=== PATIENT | female | born 1970 | race Caucasian/White ===

== ENCOUNTER → 2019-10-13 | Outpatient (CLI) | payer MEDICARE | END | disposition home or self-care (01) | LOC: PREOP 05:56 | PROVIDERS: ATTEND Surgery | DX: Z01.818 Encounter for other preprocedural examination (principal) ==

== ENCOUNTER → 2019-10-13 | Outpatient (CLI) | payer MEDICAID, MEDICARE ==
--- NOTE | 2019-10-13 14:38 | Diagnostic Imaging Report ---
INDICATION: Bilateral breast pain. Patient reports having prior breast reduction surgery. COMPARISON: No prior studies are available for comparison. TECHNIQUE: Bilateral 2D and 3D diagnostic mammography was performed. This includes routine CC and MLO views as well as 90 degree lateral views, left exaggerated CC view, and a right spot compression ML view. The current study was evaluated with a Computer Aided Detection (CAD) system. FINDINGS: Both breasts are heterogeneously dense, limiting the sensitivity of mammography. There are scattered benign calcifications in both breasts. There is a density in the superior right breast at mid depth which is indeterminate. Additional views of this area show some persistent density and ultrasound of this area is recommended. No suspicious microcalcifications are seen. A pacemaker battery pack in the left axilla is noted. IMPRESSION: Slightly irregular density in the superior right breast approximately 4 cm from the nipple. This is not well-visualized on the CC view. Further evaluation with ultrasound is recommended. Ultrasound of the areas of breast pain bilaterally is also recommended and will be performed today. ACR BI-RADS Category 0: Incomplete. (Needs additional imaging evaluation). Result letter will be mailed to the patient. Note: At least 10% of breast cancer is not imaged by mammography. Dictated by: Dictated on workstation # [id number]
--- NOTE | 2019-10-13 14:52 | Diagnostic Imaging Report ---
INDICATION: Bilateral breast reduction and bilateral breast pain. Patient also has a right breast density noted on diagnostic mammogram. COMPARISON: Correlation is made with diagnostic mammogram earlier the same day. FINDINGS: Sonographic interrogation of the left breast at areas of pain was performed. No sonographic abnormality is identified. There is an area of hypoechogenicity in the region of the scar of the right breast, 5 o'clock location. This area measures 2.4 x 0.7 x 1.1 cm. This could represent an old hematoma. In addition, there appears to be a small cluster of cysts at the 1 o'clock location in the right breast, 5 cm from the nipple. This in aggregate measures 7 mm x 5 mm x 4 mm. This may account for the density noted mammographically. No other sonographic abnormality is seen. IMPRESSION: 1. No sonographic abnormality in the left breast is identified. 2. Probable cyst cluster at the 1 o'clock location, 5 cm from the nipple. There is also questionable old hematoma at the 5 o'clock location of the right breast just deep to the scar. Follow-up ultrasound of these areas as well as a follow-up right mammogram in six months would be recommended to confirm stability. ACR BI-RADS Category 3: Probably benign findings. Dictated by: Dictated on workstation # [id number]
== END ==
LOC: RAD 12:06
PROVIDERS: ATTEND Registered Nurse
DX: N64.4 Mastodynia (principal); R92.2 Inconclusive mammogram
CPT/HCPCS: 76642; 77066

== ENCOUNTER 2020-01-12 16:01 | Outpatient (RCR) | payer MEDICAID ==
[~2020-01-12 16:01] MED LIST: CETI10TA17 PO; CITA10TA7 PO; DICY10CA12 PO; EPIN5DRO10 OP; EST30C VG; FEXO-46 PO; IBUP-1780 PO; IPRA3AMP31 IH; IPRA4AER IH; LAMO100T5 PO; MONT10TA26 PO; OLOP2.5D6 OP; OMEP20CA18 PO; PROM25TA14 PO; QUET200T29 PO; QUET25TA73 PO; RT-ALBUINH IH; TOPI200T8 PO
== END 2020-04-05 | disposition home or self-care (01) ==
LOC: LAB 16:01
PROVIDERS: ATTEND Surgery
DX: Z01.89 Encounter for other specified special examinations (principal); B96.81 Helicobacter pylori [H. pylori] as the cause of diseases classified elsewhere
CPT/HCPCS: 36415; 87338

== ENCOUNTER 2023-05-12 05:13 | Emergency (ER) | payer MEDICARE, MEDICAID ==
[~2023-05-12 05:13] MED LIST changes: +ALBU8.5H6 IH; -CITA10TA7 PO; +CITA10TA9 PO; +DICY-11 PO; -DICY10CA12 PO; -FEXO-46 PO; +LEVE500T6 PO; +MONT-40 PO; -MONT10TA26 PO; +NF-ALLE180 PO; +OLOP2.5D16 OP; -OLOP2.5D6 OP; +QUET25TA35 PO; -QUET25TA73 PO; -RT-ALBUINH IH
[2023-05-12] MEDS ORDERED: DroPERidol INJECTION 5 MG/2 ML (ED ONLY!) IV ONE (06:30)
--- NOTE | 2023-05-12 06:37 | ED General ---
General Chief Complaint: Altered Mental Status Stated Complaint: HALLUCINATIONS Nursing Triage Note: TO ED VIA [facility] TO ROOM 7 WITH C/O ABD PAIN AND YELLING AND CRYING. PT RAMBLED SPEECH. PT COMES FROM [facility]. Source of Information: Patient Exam Limitations: No Limitations History of Present Illness Date Seen by Provider: May 12, 2023 Time Seen by Provider: 05:15 Initial Comments 52-year-old female with past medical history of developmental delay and prior drug use coming in via EMS from her snf due to initially abdominal pain, yelling, and crying. The patient states that when she used to do meth, it stayed in her stomach, now has grown, and she is concerned that it will explode. Unclear when this started, patient does not associate any symptoms with it. Otherwise denying any other acute complaints. She is having regular bowel movements, no nausea or vomiting, no fever, no dysuria, no diarrhea. Allergies and Home Medications Allergies Coded Allergies: carbamazepine (Verified Allergy, Severe, WEAKNESS, 10/14/19) divalproex sodium (Verified Allergy, Severe, WEAKNESS, 10/14/19) phenytoin (Verified Allergy, Severe, WEAKNESS, 10/14/19) diphenhydramine (Verified Allergy, Mild, HIVES, 10/14/19) pseudoephedrine (Verified Allergy, Mild, WEAKNESS, 10/14/19) Patient Home Medication List Home Medication List Reviewed: Yes Albuterol Sulfate (Ventolin Hfa) 1 Puff Puff, 2 PUFF IH Q4H PRN for SHORTNESS OF BREATH, (Reported) Entered as Reported by: RODRICK ORO on 11/25/19 1333 Albuterol/Ipratropium (Combivent Respimat Inhal [place]) 4 Gm Aero, 2 PUFF IH Q4H PRN for SHORTNESS OF BREATH, (Reported) Entered as Reported by: RODRICK ORO on 11/25/19 1333 Cetirizine HCl (Cetirizine HCl) 10 Mg Tablet, 10 MG PO DAILY, (Reported) Entered as Reported by: RODRICK ORO on 11/25/19 1333 Citalopram Hydrobromide (Citalopram HBr) 10 Mg Tablet, 10 MG PO DAILY, (Reported) Entered as Reported by: RODRICK ORO on 11/25/19 133 Dicyclomine HCl (Dicyclomine HCl) 10 Mg Capsule, 10 MG PO QID PRN for PAIN- MODERATE (5-7), (Reported) Entered as Reported by: RODRICK ORO on 11/25/19 133 Epinastine HCl (Epinastine HCl) 5 Ml Drops, 5 ML OP BID, (Reported) Entered as Reported by: RODRICK ORO on 11/25/19 133 Estrogens Conjugated (Premarin) 30 Gm Cr, 30 GM VG 2X PER WEEK, (Reported) Entered as Reported by: RODRICK ORO on 11/25/19 133 Fexofenadine HCl (Fexofenadine HCl) 180 Mg Tablet, 180 MG PO DAILY, (Reported) Entered as Reported by: RODRICK ORO on 11/25/19 133 Ibuprofen (Ibuprofen) 800 Mg Tablet, 800 MG PO Q8H PRN for PAIN-MILD, (Reported) Entered as Reported by: RODRICK ORO on 11/25/19 133 Ipratropium/Albuterol Sulfate (Iprat-Albut 0.5-3(2.5) mg/3 ml) 3 Ml Ampul.neb, 3 ML IH Q12H PRN for SHORTNESS OF BREATH, (Reported) Entered as Reported by: RODRICK ORO on 11/25/191332 Lamotrigine (Lamotrigine) 100 Mg Tablet, 50 MG PO BID, (Reported) Entered as Reported by: RODRICK ORO on 11/25/19 133 Levetiracetam (Levetiracetam) 500 Mg Tablet, 500 MG PO BID WITH MEALS, (Reported) Entered as Reported by: Nohemi Magaña on 04/27/232209 Montelukast Sodium (Montelukast Sodium) 10 Mg Tablet, 10 MG PO DAILY, (Reported) Entered as Reported by: RODRICK ORO on 11/25/19 133 Olopatadine HCl (Olopatadine HCl) 2.5 Ml Drops, 2.5 ML OP BID, (Reported) Entered as Reported by: RODRICK ORO on 4/28/20 1333 Omeprazole (Omeprazole) 20 Mg Capsule.dr, 20 MG PO BID, (Reported) Entered as Reported by: RODRICK ORO on 11/25/19 133 Promethazine HCl (Promethazine Tablet) 25 Mg Tablet, 25 MG PO Q6H PRN for NAUSEA/VOMITING, (Reported) Entered as Reported by: RODRICK ORO on 11/25/191332 Quetiapine Fumarate (Quetiapine Fumarate) 25 Mg Tablet, 25 MG PO TID, (Reported) Entered as Reported by: RODRICK ORO on 11/25/19 133 Quetiapine Fumarate (Quetiapine Fumarate) 25 Mg Tablet, 25 MG PO HS, (Reported) Entered as Reported by: RODRICK ORO on 11/25/191332 Quetiapine Fumarate (Quetiapine Fumarate) 200 Mg Tablet, 200 MG PO EVENING, (Reported) Entered as Reported by: RODRICK ORO on 11/25/19 133 Topiramate (Topiramate) 200 Mg Tablet, 200 MG PO BID, (Reported) Entered as Reported by: RODRICK ORO on 11/25/19 133 Review of Systems Review of Systems Constitutional: No fever EENTM: no symptoms reported Respiratory: no symptoms reported Cardiovascular: no symptoms reported Gastrointestinal: see HPI Genitourinary: no symptoms reported Musculoskeletal: no symptoms reported Skin: no symptoms reported Past [id number]-Ntkrrg Hx Patient Social History Additional substance use comme: PAST HX OF METH USE Seasonal Allergies Seasonal Allergies: No Past Medical History Surgeries: Yes (BRAIN FOR SEIZURES, BREAST REDUCTION) Hysterectomy, Tubal Ligation Respiratory: Yes (O2 2L NOC ) Asthma Cardiac: No Neurological: Yes (NO SEIZURES SINCE SURGERY 2018) 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 Disorder, Seizure Disorder 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 oz. kg; 23.29 BMI Method: General Appearance: No Apparent Distress, WD/WN Eyes: Bilateral Eye Normal Inspection HEENT: PERRL/EOMI, Normal ENT Inspection, Pharynx Normal Neck: Full Range of Motion, Normal Inspection, Non Tender, Supple Respiratory: Chest Non Tender, Lungs Clear, Normal Breath Sounds, No Accessory Muscle Use, No Respiratory Distress Cardiovascular: Regular Rate, Rhythm, No Edema, Normal Peripheral Pulses Gastrointestinal: Normal Bowel Sounds, Non Tender, Soft; No Distended, No Guarding Back: Normal Inspection, No CVA Tenderness Extremity: Normal Capillary Refill, Normal Inspection, Normal Range of Motion, Non Tender, No Calf Tenderness, No Pedal Edema Neurologic/Psychiatric: Alert, No Motor/Sensory Deficits, Normal Mood/Affect Skin: Normal Color, Warm/Dry Progress/Results/Core Measures Suspected Sepsis SIRS Temperature: Pulse: 69 Respiratory Rate: 16 Laboratory Tests 05/12/23 06:44: White Blood Count 7.2 Blood Pressure 99 /81 Mean: 87 Laboratory Tests 05/12/23 06:44: Creatinine 0.82, Platelet Count 276, Total Bilirubin 0.6 Results/Orders Lab Results Laboratory Tests Test 05/12/23 06:25 05/12/23 06:44 Range/Units Urine Color YELLOW Urine Clarity CLEAR Urine pH 5.5 5-9 Urine Specific [place] 1.020 1.016-1.022 Urine Protein NEGATIVE NEGATIVE Urine Glucose (UA) NEGATIVE NEGATIVE Urine Ketones NEGATIVE NEGATIVE Urine Nitrite NEGATIVE NEGATIVE Urine Bilirubin NEGATIVE NEGATIVE Urine Urobilinogen 0.2 < = 1.0 MG/DL Urine Leukocyte Esterase TRACE H NEGATIVE Urine RBC (Auto) NEGATIVE NEGATIVE Urine RBC NONE /HPF Urine WBC NONE /HPF Urine Squamous Epithelial Cells 2-5 /HPF Urine Crystals NONE /LPF Urine Bacteria TRACE /HPF Urine Casts NONE /LPF Urine Mucus NEGATIVE /LPF Urine Culture Indicated NO Urine Opiates Screen NEGATIVE NEGATIVE Urine Oxycodone Screen NEGATIVE NEGATIVE Urine Methadone Screen NEGATIVE NEGATIVE Urine Propoxyphene Screen NEGATIVE NEGATIVE Urine Barbiturates Screen NEGATIVE NEGATIVE Ur Tricyclic Antidepressants Screen NEGATIVE NEGATIVE Urine Phencyclidine Screen NEGATIVE NEGATIVE Urine Amphetamines Screen POSITIVE H NEGATIVE Urine Methamphetamines Screen POSITIVE H NEGATIVE Urine Benzodiazepines Screen NEGATIVE NEGATIVE Urine Cocaine Screen NEGATIVE NEGATIVE Urine Cannabinoids Screen NEGATIVE NEGATIVE White Blood Count 7.2 4.3-11.0 10^3/uL Red Blood Count 4.52 3.80-5.11 10^6/uL Hemoglobin 12.8 11.5-16.0 g/dL Hematocrit 40 35-52 % Mean Corpuscular Volume 87 80-99 fL Mean Corpuscular Hemoglobin 28 25-34 pg Mean Corpuscular Hemoglobin Concent 32 32-36 g/dL Red Cell Distribution Width 15.3 H 10.0-14.5 % Platelet Count 276 130-400 10^3/uL Mean Platelet Volume 10.0 9.0-12.2 fL Immature Granulocyte % (Auto) 0 % Neutrophils (%) (Auto) 42 42-75 % Lymphocytes (%) (Auto) 46 H 12-44 % Monocytes (%) (Auto) 7 0-12 % Eosinophils (%) (Auto) 4 0-10 % Basophils (%) (Auto) 1 0-10 % Neutrophils # (Auto) 3.1 1.8-7.8 10^3/uL Lymphocytes # (Auto) 3.3 1.0-4.0 10^3/uL Monocytes # (Auto) 0.5 0.0-1.0 10^3/uL Eosinophils # (Auto) 0.3 0.0-0.3 10^3/uL Basophils # (Auto) 0.1 0.0-0.1 10^3/uL Immature Granulocyte # (Auto) 0.0 0.0-0.1 10^3/uL Sodium Level 142 135-145 MMOL/L Potassium Level 3.5 L 3.6-5.0 MMOL/L Chloride Level 114 H 98-107 MMOL/L Carbon Dioxide Level 18 L 21-32 MMOL/L Anion Gap 10 5-14 MMOL/L Blood Urea Nitrogen 12 7-18 MG/DL Creatinine 0.82 0.60-1.30 MG/DL Estimat Glomerular Filtration Rate 85 BUN/Creatinine Ratio 15 Glucose Level 87 70-105 MG/DL Calcium Level 8.8 8.5-10.1 MG/DL Corrected Calcium 8.9 8.5-10.1 MG/DL Total Bilirubin 0.6 0.1-1.0 MG/DL Aspartate Amino Transf (AST/SGOT) 27 5-34 U/L Alanine Aminotransferase (ALT/SGPT) 22 0-55 U/L Alkaline Phosphatase 104 40-136 U/L Total Protein 6.9 6.4-8.2 GM/DL Albumin 3.9 3.2-4.5 GM/DL Lipase 32 8-78 U/L Salicylates Level < 5.0 L 5.0-20.0 MG/DL Acetaminophen Level < 10 L 10-30 UG/ML Serum Alcohol < 10 <10 MG/DL My Orders Orders - ADALI PFEIFFER MD Lipase (05/12/23 06:23) Droperidol Injection (Ed Only) (Droperid (05/12/23 06:30) Droperidol Injection (Ed Only) (Droperid (05/12/23 07:15) Medications Given in ED Current Medications Medications Dose Ordered Sig/Jessenia Route Start Time Stop Time Status Last Admin Dose Admin Droperidol 1.25 mg ONCE ONCE IM 05/12/23 07:15 05/12/23 07:19 DC 05/12/23 07:26 1.25 MG Vital Signs/I&O 05/12/23 05:13 Temp 36.7 Pulse 69 Resp 16 B/P (MAP) 99/81 (87) Pulse Ox 97 O2 Delivery Room Air Capillary Refill : Less Than 3 Seconds Blood Pressure Mean: 87 Progress Note : Progress Note 52yoF with above history coming in feeling weird abdominal sensations. ABCs intact and VSS on presentation. Physical exam with soft and nontender abdomen. IV placed and basic labs obtained and were significant for normal WBC, normal creatinine, normal lipase. Urinalysis without evidence of infection. UDS positive for meth. Patient was given IM droperidol to help with symptoms with guarding meth use. I believe she is stable for discharge with outpatient follow-up. She was sent home with strict return precautions. Departure Impression Primary Impression: Methamphetamine use Disposition: 01 HOME, SELF-CARE Condition: Stable Departure-Patient Inst. Decision time for Depature: 07:40 Referrals: [facility] [place] ([place]Family) Primary Care Physician Patient Instructions: Drug Misuse and Addiction (DC) Add. Discharge Instructions: The symptoms you are having are related to the meth use. These will improve after the meth is out of your system. ADALI PFEIFFER MD May 12, 2023 06:36
[2023-05-12 06:43] LABS: BILIRUBIN,URINE NEGATIVE (NEGATIVE); CLARITY,URINE CLEAR; COLOR,URINE YELLOW; GLUCOSE, URINE (UA) NEGATIVE (NEGATIVE); KETONES,URINE NEGATIVE (NEGATIVE); LEUKOCYTE ESTERASE ,URINE TRACE (NEGATIVE); NITRITE,URINE NEGATIVE (NEGATIVE); PH,URINE 5.5 (5-9); PROTEIN,URINE NEGATIVE (NEGATIVE)
[2023-05-12 06:44] LABS: BACTERIA,URINE TRACE /HPF
[2023-05-12 06:46] LABS: AMPHETAMINE SCREEN, URINE POSITIVE (NEGATIVE); BARBITURATE SCREEN URINE NEGATIVE (NEGATIVE); CANNABINOID SCREEN, URINE NEGATIVE (NEGATIVE); COCAINE SCREEN URINE NEGATIVE (NEGATIVE); METHADONE STAT NEGATIVE (NEGATIVE); OPIATE SCREEN URINE NEGATIVE (NEGATIVE); OXYCODONE STAT NEGATIVE (NEGATIVE); PROPOXYPHENE STAT NEGATIVE (NEGATIVE); TRICYCLIC ANTIDEPRESSANTS SCRE NEGATIVE (NEGATIVE)
[2023-05-12 06:59] LABS: BASOPHILS # (AUTO) 0.1 10^3/uL (0.0-0.1); BASOPHILS % (AUTO) 1 % (0-10); EOSINOPHILS # (AUTO) 0.3 10^3/uL (0.0-0.3); EOSINOPHILS % (AUTO) 4 % (0-10); HEMATOCRIT 40 % (35-52); HEMOGLOBIN 12.8 g/dL (11.5-16.0); LYMPHOCYTES # (AUTO) 3.3 10^3/uL (1.0-4.0); LYMPHOCYTES % (AUTO) 46 % (12-44); MEAN CORPUSCULAR HEMOGLOBIN 28 pg (25-34); MEAN CORPUSCULAR HGB CONC 32 g/dL (32-36); MEAN CORPUSCULAR VOLUME 87 fL (80-99); MONOCYTES # (AUTO) 0.5 10^3/uL (0.0-1.0); MONOCYTES % (AUTO) 7 % (0-12); NEUTROPHILS # (AUTO) 3.1 10^3/uL (1.8-7.8); NEUTROPHILS % (AUTO) 42 % (42-75); PLATELET COUNT 276 10^3/uL (130-400); WHITE BLOOD COUNT 7.2 10^3/uL (4.3-11.0)
[2023-05-12 07:00] LABS: ALBUMIN 3.9 GM/DL (3.2-4.5); CHLORIDE 114 MMOL/L (98-107); POTASSIUM 3.5 MMOL/L (3.6-5.0); SODIUM 142 MMOL/L (135-145)
[2023-05-12 07:01] LABS: CALCIUM 8.8 MG/DL (8.5-10.1)
[2023-05-12 07:02] LABS: GLUCOSE 87 MG/DL (70-105)
[2023-05-12 07:03] LABS: CARBON DIOXIDE 18 MMOL/L (21-32); TOTAL PROTEIN 6.9 GM/DL (6.4-8.2)
[2023-05-12 07:04] LABS: BILIRUBIN,TOTAL 0.6 MG/DL (0.1-1.0)
[2023-05-12 07:06] LABS: ALKALINE PHOSPHATASE 104 U/L (40-136); CREATININE SERUM 0.82 MG/DL (0.60-1.30); GFR ESTIMATED 85
[2023-05-12 07:08] LABS: BUN/CREATININE RATIO 15
[2023-05-12 07:09] LABS: ALANINE AMINOTRANSFERASE 22 U/L (0-55); SALICYLATE < 5.0 MG/DL (5.0-20.0)
[2023-05-12 07:10] LABS: LIPASE 32 U/L (8-78)
[2023-05-12 07:12] LABS: ACETAMINOPHEN < 10 UG/ML (10-30)
[2023-05-12] MEDS ORDERED: DroPERidol INJECTION 5 MG/2 ML (ED ONLY!) IM ONE (07:15)
[2023-05-12 08:00] VITALS: BP 110/78
== END 2023-05-12 08:00 | disposition home or self-care (01) ==
LOC: EDUNIT# 05:14 → ER 05:15
DX: F15.10 Other stimulant abuse, uncomplicated (principal)
CPT/HCPCS: 80053; 80306; 81000; 83690; 85025; 99283; G0480 ×3; 36415; 80320; 80329

== ENCOUNTER 2023-05-15 23:52 | Emergency (ER) | payer MEDICARE, MEDICAID ==
[~2023-05-15] VITALS: Ht 152 cm; Wt 54.0 kg
[2023-05-16] VITALS: BP 141/81
[2023-05-16] MEDS ORDERED: LACTATED RINGERS 1,000 ML 1,000 ML IV ONE (00:45)
--- NOTE | 2023-05-16 00:48 | ED Abdominal Pain ---
General Chief Complaint: Abdominal/GI Problems Stated Complaint: ABD/VAG PAIN Nursing Triage Note: PT STATES SLEEPING, 1 HOUR PRIOR TO ARRIVAL ABDOMINAL PAIN AND VAGINAL PAIN. Source of Information: Patient, Old Records Exam Limitations: Other (Intellectual disability, substance abuse) (LISBET LOPEZ MD) History of Present Illness Date Seen by Provider: May 16, 2023 Time Seen by Provider: 00:20 Initial Comments This 52-year-old woman presents to the emergency room with primary complaint of abdominal pain that woke her from sleep not long before coming to the emergency room. Pain is in the left abdomen radiating to the vaginal area. She complains of dysuria as well. She has had some nausea and vomiting as well. She had been constipated but treated that with resolution. She noticed some blood on her toilet paper on a recent prior visit to a [facility]. She has had some hot and cold chills but is afebrile. She is sexually active with her boyfriend. She denies any vaginal discharge. She has had pain with intercourse. She has had a prior hysterectomy. Review of her chart reveals an EGD and colonoscopy with Dr. Grigsby in 2019. This revealed gastritis, possible ulcer, colon polyp, and internal hemorrhoids. Patient has a prior history of substance abuse but denies any current drug or alcohol use. (LISBET LOPEZ MD) Allergies and Home Medications Allergies Coded Allergies: carbamazepine (Verified Allergy, Severe, WEAKNESS, 10/14/19) divalproex sodium (Verified Allergy, Severe, WEAKNESS, 10/14/19) phenytoin (Verified Allergy, Severe, WEAKNESS, 10/14/19) diphenhydramine (Verified Allergy, Mild, HIVES, 10/14/19) pseudoephedrine (Verified Allergy, Mild, WEAKNESS, 10/14/19) Iodinated Contrast Media (Verified Adverse Reaction, Mild, Vomiting, 05/17/23) Patient Home Medication List Home Medication List Reviewed: Yes (LISBET LOPEZ MD) Albuterol Sulfate (Ventolin Hfa) 1 Puff Puff, 2 PUFF IH Q4H PRN for SHORTNESS OF BREATH, (Reported) Entered as Reported by: RODRICK ORO on 11/25/19 1333 Albuterol/Ipratropium (Combivent Respimat Inhal [place]) 4 Gm Aero, 2 PUFF IH Q4H PRN for SHORTNESS OF BREATH, (Reported) Entered as Reported by: RODRICK ORO on 11/25/191332 Cetirizine HCl (Cetirizine HCl) 10 Mg Tablet, 10 MG PO DAILY, (Reported) Entered as Reported by: RODRICK ORO on 11/25/191332 Citalopram Hydrobromide (Citalopram HBr) 10 Mg Tablet, 10 MG PO DAILY, (Reported) Entered as Reported by: RODRICK ORO on 11/25/191332 Dicyclomine HCl (Dicyclomine HCl) 10 Mg Capsule, 10 MG PO QID PRN for PAIN- MODERATE (5-7), (Reported) Entered as Reported by: RODRICK ORO on 11/25/191332 Epinastine HCl (Epinastine HCl) 5 Ml Drops, 5 ML OP BID, (Reported) Entered as Reported by: RODRICK ORO on 11/25/191332 Estrogens Conjugated (Premarin) 30 Gm Cr, 30 GM VG 2X PER WEEK, (Reported) Entered as Reported by: RODRICK ORO on 11/25/191332 Fexofenadine HCl (Fexofenadine HCl) 180 Mg Tablet, 180 MG PO DAILY, (Reported) Entered as Reported by: RODRICK ORO on 11/25/191332 Ibuprofen (Ibuprofen) 800 Mg Tablet, 800 MG PO Q8H PRN for PAIN-MILD, (Reported) Entered as Reported by: RODRICK ORO on 11/25/191332 Ipratropium/Albuterol Sulfate (Iprat-Albut 0.5-3(2.5) mg/3 ml) 3 Ml Ampul.neb, 3 ML IH Q12H PRN for SHORTNESS OF BREATH, (Reported) Entered as Reported by: RODRICK ORO on 11/25/191332 Lamotrigine (Lamotrigine) 100 Mg Tablet, 50 MG PO BID, (Reported) Entered as Reported by: RODRICK ORO on 11/25/191332 Levetiracetam (Levetiracetam) 500 Mg Tablet, 500 MG PO BID WITH MEALS, (Reported) Entered as Reported by: Nohemi Magaña on 04/27/23 2210 Metronidazole (Metronidazole) 500 Mg Tablet, 500 MG PO BID Prescribed by: FRANCA BLACKBURN MD on 05/16/23 1010 Montelukast Sodium (Montelukast Sodium) 10 Mg Tablet, 10 MG PO DAILY, (Reported) Entered as Reported by: RODRICK ORO on 11/25/19 133 Olopatadine HCl (Olopatadine HCl) 2.5 Ml Drops, 2.5 ML OP BID, (Reported) Entered as Reported by: RODRICK ORO on 11/25/19 1333 Omeprazole (Omeprazole) 20 Mg Capsule.dr, 20 MG PO BID, (Reported) Entered as Reported by: RODRICK ORO on 11/25/19 1333 Ondansetron (Ondansetron Odt) 4 Mg Tab.rapdis, 4 MG SL Q4H PRN for NAUSEA/VOMITING Prescribed by: LISBET ORTIZ on 05/17/23 0604 Promethazine HCl (Promethazine Tablet) 25 Mg Tablet, 25 MG PO Q6H PRN for NAUSEA/VOMITING, (Reported) Entered as Reported by: RODRICK ORO on 11/25/19 133 Quetiapine Fumarate (Quetiapine Fumarate) 25 Mg Tablet, 25 MG PO TID, (Reported) Entered as Reported by: RODRICK ORO on 11/25/19 1333 Quetiapine Fumarate (Quetiapine Fumarate) 25 Mg Tablet, 25 MG PO HS, (Reported) Entered as Reported by: RODRICK ORO on 11/25/19 133 Quetiapine Fumarate (Quetiapine Fumarate) 200 Mg Tablet, 200 MG PO EVENING, (Reported) Entered as Reported by: RODRICK ORO on 11/25/19 133 Topiramate (Topiramate) 200 Mg Tablet, 200 MG PO BID, (Reported) Entered as Reported by: RODRICK ORO on 11/25/19 133 Review of Systems Review of Systems Constitutional: no symptoms reported EENTM: No Symptoms Reported Respiratory: No Symptoms Reported Cardiovascular: No Symptoms Reported Gastrointestinal: See HPI Genitourinary: See HPI Musculoskeletal: no symptoms reported Skin: no symptoms reported Psychiatric/Neurological: No Symptoms Reported Endocrine: No Symptoms Reported Hematologic/Lymphatic: No Symptoms Reported (LISBET LOPEZ MD) Past Pybrtht-Igprlb-Szwdun Hx Patient Social History Substance use?: Yes Substance type: Methamphetamine (LISBET LOPEZ MD) Seasonal Allergies Seasonal Allergies: No (LISBET LOPEZ MD) Past Medical History Surgery/Hospitalization HX: HYSTERECTOMY, TUBAL, SURGERY ON HEAD, BREAST REDUCTION Surgeries: Yes (BRAIN FOR SEIZURES, BREAST REDUCTION) Abdominal (EGD and colonoscopy with polypectomy), Breast, Hysterectomy, Tubal Ligation Respiratory: Yes (O2 2L NOC ) Asthma Cardiac: No Neurological: Yes (NO SEIZURES SINCE SURGERY 2018) 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 Disorder, Seizure Disorder [employer]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 Sexually Transmitted Disease: No HIV/AIDS: No Genitourinary: No Gastrointestinal: Yes (GASTRITIS) Gastroesophageal Reflux, Hemorrhoids, Polyps Musculoskeletal: No Endocrine: No HEENT: Yes (GLASSES) Loss of Vision: Denies Hearing Impairment: Denies Cancer: No Psychosocial: Yes Anxiety, Bipolar Integumentary: No Blood Disorders: No Adverse Reaction/Blood Tranf: No (N/A) (LISBET LOPEZ MD) Physical Exam Vital Signs Vital Signs - First Documented 05/16/23 00:00 Temp 36.2 Pulse 59 Resp 20 B/P (MAP) 141/81 (101) Pulse Ox 98 (BERE,FRANCA L DO) Vital Signs Capillary Refill : Less Than 3 Seconds (LISBET LOPEZ MD) Height/Weight/BMI Height: '" Weight: lbs. oz. kg; 23.00 BMI Method: General Appearance: WD/WN, mild distress HEENT: PERRL/EOMI, normal ENT inspection Neck: normal inspection Respiratory: lungs clear, normal breath sounds, no respiratory distress Cardiovascular: regular rate, rhythm, no edema, no murmur Gastrointestinal: normal bowel sounds, soft; No distended; tenderness (lower abdomen) Extremities: normal inspection Pelvic: normal external exam, discharge (copious thin white discharge), other (no bleeding or significant inflammation of the vaginal wall. No cervix due to hysterectomy.) Neurologic/Psychiatric: no motor/sensory deficits, alert, normal mood/affect Skin: normal color, warm/dry (LISBET LOPEZ MD) Progress/Results/Core Measures Results/Orders Lab Results Laboratory Tests Test 05/16/23 00:55 05/16/23 01:25 05/16/23 03:18 Range/Units White Blood Count 8.9 4.3-11.0 10^3/uL Red Blood Count 4.72 3.80-5.11 10^6/uL Hemoglobin 13.2 11.5-16.0 g/dL Hematocrit 41 35-52 % Mean Corpuscular Volume 86 80-99 fL Mean Corpuscular Hemoglobin 28 25-34 pg Mean Corpuscular Hemoglobin Concent 32 32-36 g/dL Red Cell Distribution Width 14.8 H 10.0-14.5 % Platelet Count 280 130-400 10^3/uL Mean Platelet Volume 10.0 9.0-12.2 fL Immature Granulocyte % (Auto) 0 % Neutrophils (%) (Auto) 43 42-75 % Lymphocytes (%) (Auto) 47 H 12-44 % Monocytes (%) (Auto) 7 0-12 % Eosinophils (%) (Auto) 3 0-10 % Basophils (%) (Auto) 1 0-10 % Neutrophils # (Auto) 3.8 1.8-7.8 10^3/uL Lymphocytes # (Auto) 4.2 H 1.0-4.0 10^3/uL Monocytes # (Auto) 0.6 0.0-1.0 10^3/uL Eosinophils # (Auto) 0.3 0.0-0.3 10^3/uL Basophils # (Auto) 0.1 0.0-0.1 10^3/uL Immature Granulocyte # (Auto) 0.0 0.0-0.1 10^3/uL Sodium Level 141 135-145 MMOL/L Potassium Level 3.3 L 3.6-5.0 MMOL/L Chloride Level 110 H 98-107 MMOL/L Carbon Dioxide Level 20 L 21-32 MMOL/L Anion Gap 11 5-14 MMOL/L Blood Urea Nitrogen 8 7-18 MG/DL Creatinine 0.83 0.60-1.30 MG/DL Estimat Glomerular Filtration Rate 84 BUN/Creatinine Ratio 10 Glucose Level 85 70-105 MG/DL Calcium Level 8.9 8.5-10.1 MG/DL Corrected Calcium 9.0 8.5-10.1 MG/DL Total Bilirubin 0.4 0.1-1.0 MG/DL Aspartate Amino Transf (AST/SGOT) 26 5-34 U/L Alanine Aminotransferase (ALT/SGPT) 19 0-55 U/L Alkaline Phosphatase 99 40-136 U/L C-Reactive Protein High Sensitivity 0.21 0.00-0.50 MG/DL Total Protein 6.9 6.4-8.2 GM/DL Albumin 3.9 3.2-4.5 GM/DL Lipase 28 8-78 U/L Valproic Acid (Depakene) Level < 2.0 L 50.0-100.0 UG/ML Serum Alcohol < 10 <10 MG/DL Urine Color YELLOW Urine Clarity CLOUDY H Urine pH 7.0 5-9 Urine Specific Williams 1.020 1.016-1.022 Urine Protein NEGATIVE NEGATIVE Urine Glucose (UA) NEGATIVE NEGATIVE Urine Ketones NEGATIVE NEGATIVE Urine Nitrite NEGATIVE NEGATIVE Urine Bilirubin NEGATIVE NEGATIVE Urine Urobilinogen 0.2 < = 1.0 MG/DL Urine Leukocyte Esterase NEGATIVE NEGATIVE Urine RBC (Auto) NEGATIVE NEGATIVE Urine RBC NONE /HPF Urine WBC 0-2 /HPF Urine Squamous Epithelial Cells 0-2 /HPF Urine Crystals NONE /LPF Urine Amorphous Sediment LARGE TOY PHOSPHATE H /LPF Urine Bacteria TRACE /HPF Urine Casts NONE /LPF Urine Mucus SMALL H /LPF Urine Culture Indicated NO Urine Opiates Screen NEGATIVE NEGATIVE Urine Oxycodone Screen NEGATIVE NEGATIVE Urine Methadone Screen NEGATIVE NEGATIVE Urine Propoxyphene Screen NEGATIVE NEGATIVE Urine Barbiturates Screen NEGATIVE NEGATIVE Ur Tricyclic Antidepressants Screen NEGATIVE NEGATIVE Urine Phencyclidine Screen NEGATIVE NEGATIVE Urine Amphetamines Screen NEGATIVE NEGATIVE Urine Methamphetamines Screen NEGATIVE NEGATIVE Urine Benzodiazepines Screen NEGATIVE NEGATIVE Urine Cocaine Screen NEGATIVE NEGATIVE Urine Cannabinoids Screen NEGATIVE NEGATIVE (FRANCA BLACKBURN DO) Micro Results Microbiology 05/16/23 Genital Culture, Resulted Pending 05/16/23 Wet Prep - Final, Resulted (FRANCA BLACKBURN DO) Medications Given in ED Current Medications Medications Dose Ordered Sig/Jessenia Route Start Time Stop Time Status Last Admin Dose Admin Lactated Ringer's 1,000 ml @ 0 mls/hr Q0M ONCE IV 05/16/23 00:45 05/16/23 00:46 DC 05/16/23 00:57 0 MLS/HR Metronidazole 500 mg ONCE ONCE PO 05/16/23 04:30 05/16/23 04:31 DC 05/16/23 04:37 500 MG (FRANCA BLACKBURN DO) Vital Signs/I&O 05/16/23 00:00 Temp 36.2 Pulse 59 Resp 20 B/P (MAP) 141/81 (101) Pulse Ox 98 (FRANCA BLACKBURN DO) Blood Pressure Mean: 101 Progress Progress Note #1: Time: 02:14 Progress Note Patient was interviewed and examined. Labs were obtained, reviewed, and interpreted by me. CBC was unremarkable. A relative lymphocytosis was noted. CMP revealed a potassium of 3.3. There were no other clinically relevant abnormalities. Lipase and CRP were normal. Urinalysis was unremarkable. On repeat examination patient denies any current abdominal pain or tenderness to palpation. However, she still complains of discomfort in the genital area. She would like us to do a pelvic exam for further evaluation. Toxicology screen was negative. Valproic acid level was nondetectable. Progress Note #2: Time: 04:30 Progress Note Clue cells were noted on wet prep. Flagyl was administered. Discharge instructions reviewed. (LISBET LOPEZ MD) Departure Impression Primary Impression: Bacterial vaginosis Additional Impression: Abdominal pain Qualified Codes: R10.9 - Unspecified abdominal pain Disposition: 01 HOME, SELF-CARE Condition: Stable Departure-Patient Inst. Decision time for Depature: 04:27 (LISBET LOPEZ MD) Referrals: [facility] [place] (PCP/Family) Primary Care Physician Patient Instructions: Bacterial vaginosis, Abdominal pain Add. Discharge Instructions: Complete the entire course of metronidazole as prescribed for bacterial vaginosis (overgrowth of vaginal bacteria). Additional culture results will be available to review with your primary care provider in several days. Please follow-up with your primary care provider early next week to review these culture results. You may take Tylenol (acetaminophen) up to 1000 mg every 6 hours as needed for pain. Please return to the emergency room if you have worsening symptoms despite following these instructions. All discharge instructions reviewed with patient and/or family. Voiced understanding. Scripts Metronidazole (Metronidazole) 500 Mg Tablet 500 MG PO BID, #14 TAB Prov: FRANCA BLACKBURN DO 05/16/23 Copy Copies To 1: [facility]/LISBET PLATT MD May 16, 2023 00:48 FRANCA BLACKBURN DO May 16, 2023 10:10
[2023-05-16 01:08] LABS: BASOPHILS # (AUTO) 0.1 10^3/uL (0.0-0.1); BASOPHILS % (AUTO) 1 % (0-10); EOSINOPHILS # (AUTO) 0.3 10^3/uL (0.0-0.3); EOSINOPHILS % (AUTO) 3 % (0-10); HEMATOCRIT 41 % (35-52); HEMOGLOBIN 13.2 g/dL (11.5-16.0); LYMPHOCYTES # (AUTO) 4.2 10^3/uL (1.0-4.0); LYMPHOCYTES % (AUTO) 47 % (12-44); MEAN CORPUSCULAR HEMOGLOBIN 28 pg (25-34); MEAN CORPUSCULAR HGB CONC 32 g/dL (32-36); MEAN CORPUSCULAR VOLUME 86 fL (80-99); MONOCYTES # (AUTO) 0.6 10^3/uL (0.0-1.0); MONOCYTES % (AUTO) 7 % (0-12); NEUTROPHILS # (AUTO) 3.8 10^3/uL (1.8-7.8); NEUTROPHILS % (AUTO) 43 % (42-75); PLATELET COUNT 280 10^3/uL (130-400); WHITE BLOOD COUNT 8.9 10^3/uL (4.3-11.0)
[2023-05-16 01:16] LABS: ALBUMIN 3.9 GM/DL (3.2-4.5); CHLORIDE 110 MMOL/L (98-107); POTASSIUM 3.3 MMOL/L (3.6-5.0); SODIUM 141 MMOL/L (135-145)
[2023-05-16 01:17] LABS: CALCIUM 8.9 MG/DL (8.5-10.1)
[2023-05-16 01:18] LABS: GLUCOSE 85 MG/DL (70-105); TOTAL PROTEIN 6.9 GM/DL (6.4-8.2)
[2023-05-16 01:19] LABS: CARBON DIOXIDE 20 MMOL/L (21-32)
[2023-05-16 01:20] LABS: BILIRUBIN,TOTAL 0.4 MG/DL (0.1-1.0)
[2023-05-16 01:22] LABS: ALKALINE PHOSPHATASE 99 U/L (40-136); CREATININE SERUM 0.83 MG/DL (0.60-1.30); GFR ESTIMATED 84
[2023-05-16 01:23] LABS: BUN/CREATININE RATIO 10
[2023-05-16 01:25] LABS: ALANINE AMINOTRANSFERASE 19 U/L (0-55); LIPASE 28 U/L (8-78)
[2023-05-16 01:33] LABS: VALPROIC ACID < 2.0 UG/ML (50.0-100.0)
[2023-05-16 01:45] LABS: BACTERIA,URINE TRACE /HPF; BILIRUBIN,URINE NEGATIVE (NEGATIVE); CLARITY,URINE CLOUDY; COLOR,URINE YELLOW; GLUCOSE, URINE (UA) NEGATIVE (NEGATIVE); KETONES,URINE NEGATIVE (NEGATIVE); LEUKOCYTE ESTERASE ,URINE NEGATIVE (NEGATIVE); NITRITE,URINE NEGATIVE (NEGATIVE); PROTEIN,URINE NEGATIVE (NEGATIVE); SQUAMOUS EPITHELIAL CELL,UR 0-2 /HPF; WBC,URINE 0-2 /HPF
[2023-05-16 01:47] LABS: AMORPHOUS SEDIMENT,UR LARGE AMOR PHOSPHATE /LPF
[2023-05-16 01:56] LABS: AMPHETAMINE SCREEN, URINE NEGATIVE (NEGATIVE); BARBITURATE SCREEN URINE NEGATIVE (NEGATIVE); CANNABINOID SCREEN, URINE NEGATIVE (NEGATIVE); COCAINE SCREEN URINE NEGATIVE (NEGATIVE); METHADONE STAT NEGATIVE (NEGATIVE); OPIATE SCREEN URINE NEGATIVE (NEGATIVE); OXYCODONE STAT NEGATIVE (NEGATIVE); PROPOXYPHENE STAT NEGATIVE (NEGATIVE); TRICYCLIC ANTIDEPRESSANTS SCRE NEGATIVE (NEGATIVE)
[2023-05-16] MEDS ORDERED: METR-145 PO ×2 (04:30→10:10)
[2023-05-16] MEDS ORDERED: metroNIDAZOLE 500 MG TABLET PO ONE (04:30)
[2023-05-17] MEDS ORDERED: ONDA4TAB11 SL (06:04)
== END 2023-05-16 04:43 | disposition home or self-care (01) ==
LOC: EDUNIT# 23:52 → ER 23:55
DX: N76.0 Acute vaginitis (principal); R10.30 Lower abdominal pain, unspecified; J45.909 Unspecified asthma, uncomplicated; Z99.81 Dependence on supplemental oxygen
CPT/HCPCS: 80053; 80164; 80306; 81000; 83690; 85025; 86141; 87070; 87077; 87205; 87210; 87491; 87591; 96360; 96361; 99284; G0480; 36415; 80320

== ENCOUNTER 2023-05-17 04:28 | Emergency (ER) | payer MEDICARE, MEDICAID ==
[~2023-05-17] VITALS: Ht 152 cm; Wt 54.0 kg
[~2023-05-17 04:28] MED LIST changes: +METR-145 PO
[2023-05-17] MEDS ORDERED: ONDANSETRON INJECTION 4 MG/2 ML (SDV) IVP ONE (04:45)
--- NOTE | 2023-05-17 05:03 | ED Abdominal Pain ---
General Chief Complaint: General Problems/Pain Stated Complaint: KIDNEY PAIN Nursing Triage Note: PT TO RM 6 VIA [facility]. PT STATES "I THINK MY KIDNEYS ARE SHUTTING DOWN." PT TOOK PRESCRIBED FLAGYL LAST NIGHT, C/O BACK PAIN AND BELIEVES PAIN IS R/T FLAGYL. Source of Information: Patient, Old Records Exam Limitations: No Limitations History of Present Illness Date Seen by Provider: May 17, 2023 Time Seen by Provider: 04:36 Initial Comments This 52-year-old woman presents to the emergency room with primary complaint expressed to me as abdominal pain. Primary complaint expressed to nursing staff was concerned that her "kidneys are shutting down". Her complaints are vague and ill-defined. She initially points to bilateral flanks radiating down toward the pelvis as the focus of pain but later had difficulty localizing. She was seen in this ER 2 days ago and evaluated by me. Labs were relatively unremarkable at that time. Consideration was given to CT scan during the prior visit but her pain resolved. During that visit she focused her complaint more on pelvic discomfort in the vaginal area. A pelvic exam was performed which demonstrated some whitish discharge in the vaginal canal. The wet prep revealed clue cells. She was treated with Flagyl. She received 1 dose in the emergency room and has taken 1 dose in the outpatient setting. She reports 2 episodes of vomiting this morning associated with her recurrence of abdominal pain. On exam I have difficulty localizing the pain. Patient does not answer me directly when I asked her to localize the pain. She later states that palpation of her abdomen makes her feel like she needs to urinate. At another time she states that it "itches". Patient has history of methamphetamine abuse but denies any recent use. Allergies and Home Medications Allergies Coded Allergies: carbamazepine (Verified Allergy, Severe, WEAKNESS, 10/14/19) divalproex sodium (Verified Allergy, Severe, WEAKNESS, 10/14/19) phenytoin (Verified Allergy, Severe, WEAKNESS, 10/14/19) diphenhydramine (Verified Allergy, Mild, HIVES, 10/14/19) pseudoephedrine (Verified Allergy, Mild, WEAKNESS, 10/14/19) Iodinated Contrast Media (Verified Adverse Reaction, Mild, Vomiting, 05/17/23) Patient Home Medication List Home Medication List Reviewed: Yes Albuterol Sulfate (Ventolin Hfa) 1 Puff Puff, 2 PUFF IH Q4H PRN for SHORTNESS OF BREATH, (Reported) Entered as Reported by: RODRICK ORO on 11/25/191332 Albuterol/Ipratropium (Combivent Respimat Inhal [place]) 4 Gm Aero, 2 PUFF IH Q4H PRN for SHORTNESS OF BREATH, (Reported) Entered as Reported by: RODRICK ORO on 11/25/191332 Cetirizine HCl (Cetirizine HCl) 10 Mg Tablet, 10 MG PO DAILY, (Reported) Entered as Reported by: RODRICK ORO on 11/25/191332 Citalopram Hydrobromide (Citalopram HBr) 10 Mg Tablet, 10 MG PO DAILY, (Reported) Entered as Reported by: RODRICK ORO on 11/25/191332 Dicyclomine HCl (Dicyclomine HCl) 10 Mg Capsule, 10 MG PO QID PRN for PAIN- MODERATE (5-7), (Reported) Entered as Reported by: RODRICK ORO on 11/25/191332 Epinastine HCl (Epinastine HCl) 5 Ml Drops, 5 ML OP BID, (Reported) Entered as Reported by: RODRICK ORO on 11/25/191332 Estrogens Conjugated (Premarin) 30 Gm Cr, 30 GM VG 2X PER WEEK, (Reported) Entered as Reported by: RODRICK ORO on 11/25/191332 Fexofenadine HCl (Fexofenadine HCl) 180 Mg Tablet, 180 MG PO DAILY, (Reported) Entered as Reported by: RODRICK ORO on 11/25/191332 Ibuprofen (Ibuprofen) 800 Mg Tablet, 800 MG PO Q8H PRN for PAIN-MILD, (Reported) Entered as Reported by: RODRICK ORO on 11/25/191332 Ipratropium/Albuterol Sulfate (Iprat-Albut 0.5-3(2.5) mg/3 ml) 3 Ml Ampul.neb, 3 ML IH Q12H PRN for SHORTNESS OF BREATH, (Reported) Entered as Reported by: RODRICK ORO on 4/28/20 1333 Lamotrigine (Lamotrigine) 100 Mg Tablet, 50 MG PO BID, (Reported) Entered as Reported by: RODRICK ORO on 11/25/19 133 Levetiracetam (Levetiracetam) 500 Mg Tablet, 500 MG PO BID WITH MEALS, (Reported) Entered as Reported by: Nohemi Magaña on 04/27/23 2210 Metronidazole (Metronidazole) 500 Mg Tablet, 500 MG PO BID Prescribed by: FRANCA BLACKBURN MD on 05/16/23 1010 Montelukast Sodium (Montelukast Sodium) 10 Mg Tablet, 10 MG PO DAILY, (Reported) Entered as Reported by: RODRICK ORO on 11/25/19 133 Olopatadine HCl (Olopatadine HCl) 2.5 Ml Drops, 2.5 ML OP BID, (Reported) Entered as Reported by: RODRICK ORO on 11/25/19 133 Omeprazole (Omeprazole) 20 Mg Capsule.dr, 20 MG PO BID, (Reported) Entered as Reported by: RODRICK ORO on 11/25/19 133 Ondansetron (Ondansetron Odt) 4 Mg Tab.rapdis, 4 MG SL Q4H PRN for NAUSEA/VOMITING Prescribed by: LISBET ORTIZ on 05/17/23 0604 Promethazine HCl (Promethazine Tablet) 25 Mg Tablet, 25 MG PO Q6H PRN for NAUSEA/VOMITING, (Reported) Entered as Reported by: RODRICK ORO on 11/25/19 133 Quetiapine Fumarate (Quetiapine Fumarate) 25 Mg Tablet, 25 MG PO TID, (Reported) Entered as Reported by: RODRICK ORO on 11/25/19 133 Quetiapine Fumarate (Quetiapine Fumarate) 25 Mg Tablet, 25 MG PO HS, (Reported) Entered as Reported by: RODRICK ORO on 11/25/19 133 Quetiapine Fumarate (Quetiapine Fumarate) 200 Mg Tablet, 200 MG PO EVENING, (Reported) Entered as Reported by: RODRICK ORO on 11/25/19 133 Topiramate (Topiramate) 200 Mg Tablet, 200 MG PO BID, (Reported) Entered as Reported by: RODRICK ORO on 11/25/19 7668 Review of Systems Review of Systems Constitutional: no symptoms reported EENTM: No Symptoms Reported Respiratory: No Symptoms Reported Cardiovascular: No Symptoms Reported Gastrointestinal: See HPI Genitourinary: See HPI Musculoskeletal: no symptoms reported Skin: no symptoms reported Psychiatric/Neurological: No Symptoms Reported Endocrine: See HPI Hematologic/Lymphatic: No Symptoms Reported Past Aqctshr-Lkjdic-Jrkuaa Hx Patient Social History Tobacco Use?: No Use of E-Cig and/or Vaping dev: No Substance use?: Yes Substance type: Methamphetamine Alcohol Use?: No Seasonal Allergies Seasonal Allergies: No Past Medical History Surgery/Hospitalization HX: HYSTERECTOMY, TUBAL, SURGERY ON HEAD, BREAST REDUCTION Surgeries: Yes (BRAIN FOR SEIZURES, BREAST REDUCTION) Hysterectomy, Tubal Ligation Respiratory: Yes (O2 2L NOC ) Asthma Cardiac: No Neurological: Yes (NO SEIZURES SINCE SURGERY 2018) 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 Disorder, Seizure Disorder : No [employer] History: Hysterectomy Sexually Transmitted Disease: No HIV/AIDS: No Genitourinary: No Gastrointestinal: Yes (GASTRITIS) Gastroesophageal Reflux Musculoskeletal: No Endocrine: No HEENT: Yes (GLASSES) Loss of Vision: Denies Hearing Impairment: Denies Cancer: No Psychosocial: Yes Anxiety, Bipolar Integumentary: No Blood Disorders: No Adverse Reaction/Blood Tranf: No (N/A) Physical Exam Vital Signs Vital Signs - First Documented 05/17/23 04:28 Temp 35.7 Pulse 68 Resp 18 B/P (MAP) 103/77 (86) Pulse Ox 99 O2 Delivery Room Air Capillary Refill : Less Than 3 Seconds Height/Weight/BMI Height: '" Weight: lbs. oz. kg; 23.00 BMI Method: General Appearance: WD/WN, mild distress HEENT: normal ENT inspection Neck: normal inspection Respiratory: lungs clear, normal breath sounds, no respiratory distress Cardiovascular: regular rate, rhythm, no edema, no murmur Gastrointestinal: normal bowel sounds, soft; No distended; tenderness (generalized) Extremities: normal inspection, no pedal edema Neurologic/Psychiatric: no motor/sensory deficits, alert, normal mood/affect Skin: normal color, warm/dry Progress/Results/Core Measures Results/Orders Lab Results Laboratory Tests Test 05/17/23 04:56 05/17/23 05:00 Range/Units White Blood Count 9.2 4.3-11.0 10^3/uL Red Blood Count 4.10 3.80-5.11 10^6/uL Hemoglobin 11.7 11.5-16.0 g/dL Hematocrit 36 35-52 % Mean Corpuscular Volume 87 80-99 fL Mean Corpuscular Hemoglobin 29 25-34 pg Mean Corpuscular Hemoglobin Concent 33 32-36 g/dL Red Cell Distribution Width 14.9 H 10.0-14.5 % Platelet Count 259 130-400 10^3/uL Mean Platelet Volume 10.0 9.0-12.2 fL Immature Granulocyte % (Auto) 0 % Neutrophils (%) (Auto) 44 42-75 % Lymphocytes (%) (Auto) 46 H 12-44 % Monocytes (%) (Auto) 7 0-12 % Eosinophils (%) (Auto) 3 0-10 % Basophils (%) (Auto) 0 0-10 % Neutrophils # (Auto) 4.1 1.8-7.8 10^3/uL Lymphocytes # (Auto) 4.2 H 1.0-4.0 10^3/uL Monocytes # (Auto) 0.6 0.0-1.0 10^3/uL Eosinophils # (Auto) 0.3 0.0-0.3 10^3/uL Basophils # (Auto) 0.0 0.0-0.1 10^3/uL Immature Granulocyte # (Auto) 0.0 0.0-0.1 10^3/uL Sodium Level 134 L 135-145 MMOL/L Potassium Level 3.5 L 3.6-5.0 MMOL/L Chloride Level 107 98-107 MMOL/L Carbon Dioxide Level 20 L 21-32 MMOL/L Anion Gap 7 5-14 MMOL/L Blood Urea Nitrogen 14 7-18 MG/DL Creatinine 0.86 0.60-1.30 MG/DL Estimat Glomerular Filtration Rate 80 BUN/Creatinine Ratio 16 Glucose Level 103 70-105 MG/DL Calcium Level 8.2 L 8.5-10.1 MG/DL Corrected Calcium 8.6 8.5-10.1 MG/DL Total Bilirubin 0.2 0.1-1.0 MG/DL Aspartate Amino Transf (AST/SGOT) 19 5-34 U/L Alanine Aminotransferase (ALT/SGPT) 14 0-55 U/L Alkaline Phosphatase 94 40-136 U/L Total Protein 6.0 L 6.4-8.2 GM/DL Albumin 3.5 3.2-4.5 GM/DL Lipase 55 8-78 U/L Urine Color YELLOW Urine Clarity CLEAR Urine pH 6.5 5-9 Urine Specific [place] <=1.005 1.016-1.022 Urine Protein NEGATIVE NEGATIVE Urine Glucose (UA) NEGATIVE NEGATIVE Urine Ketones NEGATIVE NEGATIVE Urine Nitrite NEGATIVE NEGATIVE Urine Bilirubin NEGATIVE NEGATIVE Urine Urobilinogen 0.2 < = 1.0 MG/DL Urine Leukocyte Esterase NEGATIVE NEGATIVE Urine RBC (Auto) NEGATIVE NEGATIVE Urine RBC NONE /HPF Urine WBC NONE /HPF Urine Crystals NONE /LPF Urine Bacteria NEGATIVE /HPF Urine Casts NONE /LPF Urine Mucus NEGATIVE /LPF Urine Culture Indicated NO Urine Opiates Screen NEGATIVE NEGATIVE Urine Oxycodone Screen NEGATIVE NEGATIVE Urine Methadone Screen NEGATIVE NEGATIVE Urine Propoxyphene Screen NEGATIVE NEGATIVE Urine Barbiturates Screen NEGATIVE NEGATIVE Ur Tricyclic Antidepressants Screen NEGATIVE NEGATIVE Urine Phencyclidine Screen NEGATIVE NEGATIVE Urine Amphetamines Screen NEGATIVE NEGATIVE Urine Methamphetamines Screen NEGATIVE NEGATIVE Urine Benzodiazepines Screen NEGATIVE NEGATIVE Urine Cocaine Screen NEGATIVE NEGATIVE Urine Cannabinoids Screen NEGATIVE NEGATIVE My Orders Orders - LISBET LOPEZ MD Cbc And Automated Diff (05/17/23 04:45) Comprehensive Metabolic Panel (05/17/23 04:45) Lipase (05/17/23 04:45) Ua Culture If Indicated (05/17/23 04:45) Ed Iv/Invasive Line Start (05/17/23 04:45) Ondansetron Injection (Ondansetron Inj (05/17/23 04:45) Ct Abdomen/Pelvis W (05/17/23 04:57) Drug Screen Stat (Urine) (05/17/23 04:57) Iohexol Injection (Omnipaque 350 Mg/Ml 1 (05/17/23 05:45) Received Contrast (Hold Metformin- Contr (05/17/23 05:45) Ns (Ivpb) 100 Ml (Sodium Chloride 0.9% 1 (05/17/23 05:45) Ketorolac Injection (Ketorolac Injection (05/17/23 06:00) Medications Given in ED Current Medications Medications Dose Ordered Sig/Jessenia Route Start Time Stop Time Status Last Admin Dose Admin Iohexol 100 ml ONCE ONCE IV 05/17/23 05:45 05/17/23 05:50 DC 05/17/23 05:41 62 ML Ketorolac Tromethamine 30 mg ONCE ONCE IVP 05/17/23 06:00 05/17/23 06:01 DC 05/17/23 06:04 30 MG Ondansetron HCl 4 mg ONCE ONCE IVP 05/17/23 04:45 05/17/23 04:46 DC 05/17/23 04:59 4 MG Sodium Chloride 100 ml ONCE ONCE IV 05/17/23 05:45 05/17/23 05:50 DC 05/17/23 05:41 80 ML Vital Signs/I&O 05/17/23 05/17/23 04:28 06:20 Temp 35.7 Pulse 68 71 Resp 18 18 B/P (MAP) 103/77 (86) 111/68 Pulse Ox 99 97 O2 Delivery Room Air Room Air Blood Pressure Mean: 86 Progress Progress Note : Progress Note Patient was interviewed and examined. Labs were repeated and interpreted by me. CBC, CMP, lipase, urinalysis, and UDS were all clinically unremarkable. There was a lymphocytic prevalence on the differential which would suggest possible viral illness. CT was obtained and reviewed by me. No acute abnormalities were appreciated on my interpretation. Radiologist report was also reviewed and was remarkable for mesenteric adenitis. Toradol is being given for treatment of her pain. She can continue taking Flagyl for bacterial vaginosis. Diagnostic Imaging Diagonstic Imaging: CT Plain Films/CT/US/NM/MRI: abdomen, pelvis Comments NAME: FIOR BOWEN [facility] REC#: [id number] PT STATUS: REG ER : 1970 PHYSICIAN: LISBET LOPEZ MD ADMIT DATE: 05/17/23/ER Signed Date of Exam:05/17/23 CT ABDOMEN/PELVIS W PROCEDURE: CT abdomen and pelvis with contrast. TECHNIQUE: Multiple contiguous axial images were obtained through the abdomen and pelvis after administration of intravenous contrast. Auto Exposure Controls were utilized during the CT exam to meet ALARA standards for radiation dose reduction. All CT scans use one or more of the following dose optimizing techniques: automated exposure control, MA and/or KvP adjustment based on patient size and exam type or iterative reconstruction. INDICATION: Generalized abdominal pain Lung bases are clear. Liver appears normal. Gallbladder surgically absent. Portal vein is patent. Common duct is not dilated. Pancreas is normal. Spleen is not enlarged. Kidneys and adrenals appear normal. Small bowel is not dilated. Appendix is normal. Colon is unremarkable. There is no intraperitoneal free air or free fluid. Urinary bladder is normal. Uterus is surgically absent. There is mild edema through the mesentery with some small mesenteric lymph nodes. This could be mesenteric panniculitis with lymphadenitis. IMPRESSION: Suspected mesenteric root lymph adenitis and mesenteric panniculitis. Dictated by: Dictated on workstation # [id number] Dict: 05/17/23538 Trans: 05/17/23541 TCB [id number] Interpreted by: ANYA GAITAN MD Electronically signed by: ANYA GAITAN MD 05/17/23541 Departure Impression Primary Impression: Mesenteric adenitis Additional Impression: Generalized abdominal pain Disposition: 01 HOME, SELF-CARE Condition: Improved Departure-Patient Inst. Decision time for Depature: 05:57 Referrals: [facility] (PCP/Family) Primary Care Physician Patient Instructions: Mesenteric Lymphadenitis Add. Discharge Instructions: Your abdominal pain is likely related to inflamed lymph nodes in your abdomen. This is probably caused by a viral illness. You may treat your pain with ibuprofen up to 600 mg every 6 hours as needed and/or Tylenol (acetaminophen) up to 1000 mg every 6 hours as needed. Start with a clear liquid diet and gradually advance your diet with small quantities of bland food as tolerated. You may use Zofran as prescribed for nausea and vomiting. Continue with Flagyl (metronidazole) as previously prescribed for your bacterial vaginosis.. All discharge instructions reviewed with patient and/or family. Voiced understanding. Scripts Ondansetron (Ondansetron Odt) 4 Mg Tab.rapdis 4 MG SL Q4H PRN for NAUSEA/VOMITING, #10 TAB Prov: LISBET LOPEZ MD 05/17/23 Copy Copies To 1: [facility]/LISBET PLATT MD May 17, 2023 05:03
[2023-05-17 05:06] LABS: BASOPHILS % (AUTO) 0 % (0-10); EOSINOPHILS # (AUTO) 0.3 10^3/uL (0.0-0.3); EOSINOPHILS % (AUTO) 3 % (0-10); HEMATOCRIT 36 % (35-52); HEMOGLOBIN 11.7 g/dL (11.5-16.0); LYMPHOCYTES # (AUTO) 4.2 10^3/uL (1.0-4.0); LYMPHOCYTES % (AUTO) 46 % (12-44); MEAN CORPUSCULAR HEMOGLOBIN 29 pg (25-34); MEAN CORPUSCULAR HGB CONC 33 g/dL (32-36); MEAN CORPUSCULAR VOLUME 87 fL (80-99); MONOCYTES # (AUTO) 0.6 10^3/uL (0.0-1.0); MONOCYTES % (AUTO) 7 % (0-12); NEUTROPHILS # (AUTO) 4.1 10^3/uL (1.8-7.8); NEUTROPHILS % (AUTO) 44 % (42-75); PLATELET COUNT 259 10^3/uL (130-400); WHITE BLOOD COUNT 9.2 10^3/uL (4.3-11.0)
[2023-05-17 05:15] LABS: ALBUMIN 3.5 GM/DL (3.2-4.5); POTASSIUM 3.5 MMOL/L (3.6-5.0)
[2023-05-17 05:16] LABS: CALCIUM 8.2 MG/DL (8.5-10.1)
[2023-05-17 05:19] LABS: BILIRUBIN,TOTAL 0.2 MG/DL (0.1-1.0)
[2023-05-17 05:21] LABS: CREATININE SERUM 0.86 MG/DL (0.60-1.30)
[2023-05-17 05:31] LABS: AMPHETAMINE SCREEN, URINE NEGATIVE (NEGATIVE); BARBITURATE SCREEN URINE NEGATIVE (NEGATIVE); CANNABINOID SCREEN, URINE NEGATIVE (NEGATIVE); COCAINE SCREEN URINE NEGATIVE (NEGATIVE); METHADONE STAT NEGATIVE (NEGATIVE); OPIATE SCREEN URINE NEGATIVE (NEGATIVE); OXYCODONE STAT NEGATIVE (NEGATIVE); PROPOXYPHENE STAT NEGATIVE (NEGATIVE); TRICYCLIC ANTIDEPRESSANTS SCRE NEGATIVE (NEGATIVE)
[2023-05-17 05:33] LABS: BACTERIA,URINE NEGATIVE /HPF; BILIRUBIN,URINE NEGATIVE (NEGATIVE); CLARITY,URINE CLEAR; COLOR,URINE YELLOW; GLUCOSE, URINE (UA) NEGATIVE (NEGATIVE); KETONES,URINE NEGATIVE (NEGATIVE); LEUKOCYTE ESTERASE ,URINE NEGATIVE (NEGATIVE); NITRITE,URINE NEGATIVE (NEGATIVE); PH,URINE 6.5 (5-9); PROTEIN,URINE NEGATIVE (NEGATIVE)
--- NOTE | 2023-05-17 05:44 | Diagnostic Imaging Report ---
PROCEDURE: CT abdomen and pelvis with contrast. TECHNIQUE: Multiple contiguous axial images were obtained through the abdomen and pelvis after administration of intravenous contrast. Auto Exposure Controls were utilized during the CT exam to meet ALARA standards for radiation dose reduction. All CT scans use one or more of the following dose optimizing techniques: automated exposure control, MA and/or KvP adjustment based on patient size and exam type or iterative reconstruction. INDICATION: Generalized abdominal pain Lung bases are clear. Liver appears normal. Gallbladder surgically absent. Portal vein is patent. Common duct is not dilated. Pancreas is normal. Spleen is not enlarged. Kidneys and adrenals appear normal. Small bowel is not dilated. Appendix is normal. Colon is unremarkable. There is no intraperitoneal free air or free fluid. Urinary bladder is normal. Uterus is surgically absent. There is mild edema through the mesentery with some small mesenteric lymph nodes. This could be mesenteric panniculitis with lymphadenitis. IMPRESSION: Suspected mesenteric root lymph adenitis and mesenteric panniculitis. Dictated by: Dictated on workstation # [id number]
[2023-05-17] MEDS ORDERED: NS 100 ML (IVPB) BAG IV ONE (05:45)
[2023-05-17] MEDS ORDERED: IOHEXOL 350 MG/ML 100 ML (OMNIPAQUE 350) VIAL IV ONE (05:45)
[2023-05-17] MEDS ORDERED: HOLD METFORMIN - RECEIVED CONTRAST 20 ML VIAL IV SCH (05:45)
[2023-05-17] MEDS ORDERED: KETOROLAC INJ 30 MG/ML VIAL IVP ONE (06:00)
[2023-05-17] MEDS ORDERED: ONDA4TAB11 SL (06:04)
[2023-05-17 06:20] VITALS: BP 111/68
== END 2023-05-17 06:20 | disposition home or self-care (01) ==
LOC: EDUNIT# 04:28 → ER 04:29
DX: I88.0 Nonspecific mesenteric lymphadenitis (principal); J45.909 Unspecified asthma, uncomplicated; Z99.81 Dependence on supplemental oxygen
CPT/HCPCS: 36415; 74177; 80053; 80306; 81000; 83690; 85025

== ENCOUNTER 2023-05-23 03:51 | Emergency (ER) | payer MEDICAID, MEDICARE ==
[~2023-05-23] VITALS: Ht 152 cm; Wt 57.0 kg
[~2023-05-23 03:51] MED LIST changes: +ONDA4TAB11 SL
[2023-05-23] MEDS ORDERED: TOPI-241 (04:04)
[2023-05-23] MEDS ORDERED: HYDR-700 (04:04)
--- NOTE | 2023-05-23 04:40 | ED General ---
General Chief Complaint: General Problems/Pain Stated Complaint: FACIAL NUMBNESS Nursing Triage Note: C/O FACIAL NUMBNESS SINCE 299, REPORTS ALSO NUMB ALL OVER. C/O NAUSEA History of Present Illness Date Seen by Provider: May 23, 2023 Time Seen by Provider: 04:10 Initial Comments Patient is a 52yo female with a history of seizure disorder, intellectual d isability who lives in a long-term. She also has a history of methamphetamine use. She is in the ER this morning stating that there is something in her throat "from the meth". She is grabbing at her throat and crying out/screaming. She states she ate some chicken nuggets this evening. She states at some point afterward she vomited. She requires extensive redirecting. She thinks also a brain stimulator wire is in her throat. She is not hoarse. She is not coughing or short of breath. she is not constantly spitting. She was apparently at [facility] some time in the last 24 hours so I called to get further information. She was admitted on 05/21/23 for "stroke like symptoms". She complained of facial numbness and numbness all over her body. She had [address] 24 hours apart - both of which were negative. She had an EEG which was normal. She was not a candidate for MRI due to her brain stimulator and could not receive IV contrast dye due to dye allergy. Was discharged on 05/22/23. Timing/Duration: Other (unsure) Severity: Severe Associated Systoms: Nausea/Vomiting Allergies and Home Medications Allergies Coded Allergies: carbamazepine (Verified Allergy, Severe, WEAKNESS, 10/14/19) divalproex sodium (Verified Allergy, Severe, WEAKNESS, 10/14/19) phenytoin (Verified Allergy, Severe, WEAKNESS, 10/14/19) diphenhydramine (Verified Allergy, Mild, HIVES, 10/14/19) pseudoephedrine (Verified Allergy, Mild, WEAKNESS, 10/14/19) Iodinated Contrast Media (Verified Adverse Reaction, Mild, Vomiting, ) Patient Home Medication List Home Medication List Reviewed: Yes Albuterol Sulfate (Ventolin Hfa) 1 Puff Puff, 2 PUFF IH Q4H PRN for SHORTNESS OF BREATH, (Reported) Entered as Reported by: RODRICK ORO on 11/25/19 1333 Albuterol/Ipratropium (Combivent Respimat Inhal [place]) 4 Gm Aero, 2 PUFF IH Q4H PRN for SHORTNESS OF BREATH, (Reported) Entered as Reported by: RODRICK ORO on 11/25/19 133 Cetirizine HCl (Cetirizine HCl) 10 Mg Tablet, 10 MG PO DAILY, (Reported) Entered as Reported by: RODRICK ORO on 11/25/19 133 Citalopram Hydrobromide (Citalopram HBr) 10 Mg Tablet, 10 MG PO DAILY, (Reported) Entered as Reported by: RODRICK ORO on 11/25/19 133 Dicyclomine HCl (Dicyclomine HCl) 10 Mg Capsule, 10 MG PO QID PRN for PAIN- MODERATE (5-7), (Reported) Entered as Reported by: RODRICK ORO on 11/25/19 133 Epinastine HCl (Epinastine HCl) 5 Ml Drops, 5 ML OP BID, (Reported) Entered as Reported by: RODRICK ORO on 11/25/19 133 Estrogens Conjugated (Premarin) 30 Gm Cr, 30 GM VG 2X PER WEEK, (Reported) Entered as Reported by: RODRICK ORO on 11/25/191332 Fexofenadine HCl (Fexofenadine HCl) 180 Mg Tablet, 180 MG PO DAILY, (Reported) Entered as Reported by: RODRICK ORO on 11/25/19 133 Hydroxyzine HCl (Hydroxyzine HCl) 25 Mg Tablet, (Reported) Entered as Reported by: DUNG PENA on 05/23/23 0404 Last Action: New Order Ibuprofen (Ibuprofen) 800 Mg Tablet, 800 MG PO Q8H PRN for PAIN-MILD, (Reported) Entered as Reported by: RODRICK ORO on 11/25/19 133 Ipratropium/Albuterol Sulfate (Iprat-Albut 0.5-3(2.5) mg/3 ml) 3 Ml Ampul.neb, 3 ML IH Q12H PRN for SHORTNESS OF BREATH, (Reported) Entered as Reported by: RODRICK ORO on 11/25/19 133 Lamotrigine (Lamotrigine) 100 Mg Tablet, 50 MG PO BID, (Reported) Entered as Reported by: RODRICK ORO on 11/25/19 133 Levetiracetam (Levetiracetam) 500 Mg Tablet, 500 MG PO BID WITH MEALS, (Reported) Entered as Reported by: Nohemi Magaña on 04/27/23 2210 Metronidazole (Metronidazole) 500 Mg Tablet, 500 MG PO BID Prescribed by: FRANCA BLACKBURN MD on 05/16/23 1010 Montelukast Sodium (Montelukast Sodium) 10 Mg Tablet, 10 MG PO DAILY, (Reported) Entered as Reported by: RODRICK ORO on 11/25/19 133 Olopatadine HCl (Olopatadine HCl) 2.5 Ml Drops, 2.5 ML OP BID, (Reported) Entered as Reported by: RODRICK ORO on 11/25/19 133 Omeprazole (Omeprazole) 20 Mg Capsule.dr, 20 MG PO BID, (Reported) Entered as Reported by: RODRICK ORO on 11/25/19 133 Ondansetron (Ondansetron Odt) 4 Mg Tab.rapdis, 4 MG SL Q4H PRN for NAUSEA/VOMITING Prescribed by: LISBET ORTIZ on 05/17/23 0604 Promethazine HCl (Promethazine Tablet) 25 Mg Tablet, 25 MG PO Q6H PRN for NAUSEA/VOMITING, (Reported) Entered as Reported by: RODRICK ORO on 11/25/19 133 Quetiapine Fumarate (Quetiapine Fumarate) 25 Mg Tablet, 25 MG PO TID, (Reported) Entered as Reported by: RODRICK ORO on 11/25/19 133 Quetiapine Fumarate (Quetiapine Fumarate) 25 Mg Tablet, 25 MG PO HS, (Reported) Entered as Reported by: RODRICK ORO on 11/25/191332 Quetiapine Fumarate (Quetiapine Fumarate) 200 Mg Tablet, 200 MG PO EVENING, (Reported) Entered as Reported by: RODRICK ORO on 11/25/19 133 Topiramate (Topiramate) 200 Mg Tablet, 200 MG PO BID, (Reported) Entered as Reported by: RODRICK ORO on 11/25/19 1333 Topiramate (Topiramate) 50 Mg Tablet, (Reported) Entered as Reported by: DUNG PENA on 05/23/23 0404 Last Action: New Order Review of Systems Review of Systems Constitutional: see HPI EENTM: throat pain Respiratory: no symptoms reported Cardiovascular: no symptoms reported Gastrointestinal: nausea, vomiting Genitourinary: no symptoms reported Musculoskeletal: no symptoms reported Skin: no symptoms reported Psychiatric/Neurological: Anxiety Past Jelrnmm-Lsdxqz-Kthdwn Hx Patient Social History Tobacco Use?: No Substance use?: Yes Substance type: Methamphetamine Alcohol Use?: No Pt feels they are or have been: No Seasonal Allergies Seasonal Allergies: No Past Medical History Surgery/Hospitalization HX: HYSTERECTOMY, TUBAL, BREAST REDUCTION SEIZURES, DEV. 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 oz. kg; 24.00 BMI Method: General Appearance: Moderate Distress (anxious grabbing at her neck; crying out/screaming) HEENT: PERRL/EOMI, Pharynx Normal; No Pharyngeal Erythema, No Tonsillar Enlargement; Other (no obvious intraoral injury or fb) Neck: Other (tenderness to light palpation of the skin of her anterior neck. no obvious swelling.) Respiratory: Lungs Clear; No No Accessory Muscle Use, No No Respiratory Distress, No Respiratory Distress, No Wheezing; Other (no voice change or h oarseness appreciated; no stridor) Cardiovascular: Regular Rate, Rhythm Gastrointestinal: Non Tender, Soft Extremity: Normal Range of Motion Neurologic/Psychiatric: Alert, No Motor/Sensory Deficits Skin: Normal Color, Warm/Dry Progress/Results/Core Measures Suspected Sepsis SIRS Temperature: Pulse: 66 Respiratory Rate: 16 Blood Pressure 130 /94 Mean: 106 Results/Orders My Orders Orders - DAIANA NOLAN MD Ondansetron Oral Dissolve Tab (Ondanset (05/23/23 04:45) Lidocaine 2% Viscous 15 Ml (Xylocaine Vi (05/23/23 04:45) Antacid Suspension (Antacid Suspension (05/23/23 04:45) Soft Tissue Neck (05/23/23 04:33) Medications Given in ED Current Medications Medications Dose Ordered Sig/Jessenia Route Start Time Stop Time Status Last Admin Dose Admin Al Hydrox/Mg Hydrox/Simethicone 30 ml ONCE ONCE PO 05/23/23 04:45 05/23/23 04:46 DC 05/23/23 04:40 30 ML Lidocaine HCl 5 ml ONCE ONCE PO 05/23/23 04:45 05/23/23 04:46 DC 05/23/23 04:40 5 ML Ondansetron HCl 4 mg ONCE ONCE PO 05/23/23 04:45 05/23/23 04:46 DC 05/23/23 04:40 4 MG Vital Signs/I&O 05/23/23 03:59 Temp 36.0 Pulse 66 Resp 16 B/P (MAP) 130/94 (106) Pulse Ox 98 O2 Delivery Room Air Capillary Refill : Less Than 3 Seconds Blood Pressure Mean: 106 Progress Note : Time: 05:42 Progress Note Patient seen and evaluated by me. Eval today includes physical exam and soft tissue neck xrays. Pertinent physical exam findings - agitated, almost hysterical female - WDWN, grabbing at her neck persistently. VSS. Afebrile, normal BP and pulse. Not hypoxic. Ranting about something to do with "methamphetamine" her her neck. Tolerating her own secretions. Heart is reg, lungs are clear. Tender to light palpation of the skin of her neck. "pain out of proportion to exam". No subcutaneous emphysema, no erythema. ddx includes esophageal fb, retropharyngeal abscess, methamphetamine intoxication Patient's xrays independently reviewed and interpreted by me. No obvious distortion of the soft tissues of the neck. Highly calcified hyoid bone. Normal epiglottis. No obvious radiopaque foreign body. Patient continued to tolerate her own secretions. Was treated with 4mg ODT zofran followed by 30ml maaolx and 5ml viscous lidocaine. She was able to swallow these without difficulty. She did not regurgitate. While waiting on rad read of xray patient is up walking around the room. Much calmer. I provided reassurance. SHe is no longer grabbing at her neck. She asked me at one point on re-evaluation "did I go paralyzed?" I again reassured her. Based on her clinical appearance now and lack of findings to support esophageal obstruction, I think it is safe to assume this presentation was more related to possible meth use than actual FB. Will d/c to home to follow up with her PCP. Consideration for CT soft tissue neck with IV contrast - however patient is allergic to IV dye and would not be reliable due to mental health issues to give history of her allergy to the dye and whether or not pre-medication would be effective. Departure Impression Primary Impression: Throat pain in adult Disposition: 01 HOME, SELF-CARE Condition: Improved Departure-Patient Inst. Decision time for Depature: 05:50 [place]: [facility] [place] Primary Care Physician Patient Instructions: Sore Throat, Adult ED Add. Discharge Instructions: Follow up with your doctor later today for further evaluation of your throat pain. Come back to the ER for any new, emergent or concerning symptoms. You can take over the counter ibuprofen 2 tablets every 6 hours with food as needed for pain. Copy Copies To 1: FIOR MORIN KATHRYN M MD May 23, 2023 04:40
[2023-05-23] MEDS ORDERED: LIDOCAINE 2% VISCOUS 15 ML UDC PO ONE (04:45)
[2023-05-23] MEDS ORDERED: ANTACID SUSPENSION 30 ML UDC PO ONE (04:45)
[2023-05-23] MEDS ORDERED: ONDANSETRON 4 MG ORAL DISSOLVE TABLET PO ONE (04:45)
[2023-05-23 05:52] VITALS: BP 114/94
--- NOTE | 2023-05-23 07:15 | Diagnostic Imaging Report ---
EXAM: SOFT TISSUE NECK INDICATION: Foreign body sensation in throat after smoking Meth. COMPARISON: None FINDINGS: Implanted stimulator in the base of the left neck. Normal prevertebral soft tissue and airway shadows. No radiopaque foreign body. [id number] spondylotic changes in the cervical spine. Postoperative changes in the calvarium. IMPRESSION: No radiopaque foreign bodies identified. Dictated by: Dictated on workstation # [id number]
[2023-05-24] MEDS ORDERED: OXCA300T18 PO ×2 (10:17)
[2023-05-24] MEDS ORDERED: TOPI150C4 PO ×2 (10:17)
[2023-05-24] MEDS ORDERED: ACET-2267 PO ×2 (10:17)
[2023-05-24] MEDS ORDERED: CLIN40CR VG ×2 (12:10)
== END 2023-05-23 05:53 | disposition home or self-care (01) ==
LOC: EDUNIT# 03:51 → ER 03:54
DX: R07.0 Pain in throat (principal); R11.2 Nausea with vomiting, unspecified; J45.909 Unspecified asthma, uncomplicated; Z99.81 Dependence on supplemental oxygen
CPT/HCPCS: 70360

== ENCOUNTER 2023-05-23 08:21 | Observation (INO) | payer MEDICARE, MEDICAID ==
[~2023-05-23] VITALS: Ht 152 cm; Wt 54.8 kg
[~2023-05-23 08:21] MED LIST changes: +HYDR-700; +TOPI-241
[2023-05-23 09:10] LABS: AMPHETAMINE SCREEN, URINE NEGATIVE (NEGATIVE); BARBITURATE SCREEN URINE NEGATIVE (NEGATIVE); CANNABINOID SCREEN, URINE NEGATIVE (NEGATIVE); CLARITY,URINE CLEAR; COCAINE SCREEN URINE NEGATIVE (NEGATIVE); COLOR,URINE YELLOW; GLUCOSE, URINE (UA) NEGATIVE (NEGATIVE); KETONES,URINE NEGATIVE (NEGATIVE); METHADONE STAT NEGATIVE (NEGATIVE); NITRITE,URINE NEGATIVE (NEGATIVE); OPIATE SCREEN URINE NEGATIVE (NEGATIVE); OXYCODONE STAT NEGATIVE (NEGATIVE); PH,URINE 6.5 (5-9); PROPOXYPHENE STAT NEGATIVE (NEGATIVE); PROTEIN,URINE NEGATIVE (NEGATIVE); TRICYCLIC ANTIDEPRESSANTS SCRE NEGATIVE (NEGATIVE)
[2023-05-23 09:11] LABS: BACTERIA,URINE NEGATIVE /HPF; BILIRUBIN,URINE NEGATIVE (NEGATIVE); LEUKOCYTE ESTERASE ,URINE NEGATIVE (NEGATIVE); SQUAMOUS EPITHELIAL CELL,UR RARE /HPF
[2023-05-23 09:40] LABS: BASOPHILS # (AUTO) 0.1 10^3/uL (0.0-0.1); BASOPHILS % (AUTO) 1 % (0-10); EOSINOPHILS # (AUTO) 0.1 10^3/uL (0.0-0.3); EOSINOPHILS % (AUTO) 1 % (0-10); HEMATOCRIT 37 % (35-52); LYMPHOCYTES # (AUTO) 3.2 10^3/uL (1.0-4.0); LYMPHOCYTES % (AUTO) 34 % (12-44); MEAN CORPUSCULAR HEMOGLOBIN 28 pg (25-34); MEAN CORPUSCULAR HGB CONC 32 g/dL (32-36); MEAN CORPUSCULAR VOLUME 87 fL (80-99); MEAN PLATELET VOLUME 10.2 fL (9.0-12.2); MONOCYTES # (AUTO) 0.5 10^3/uL (0.0-1.0); MONOCYTES % (AUTO) 5 % (0-12); NEUTROPHILS # (AUTO) 5.6 10^3/uL (1.8-7.8); NEUTROPHILS % (AUTO) 59 % (42-75); PLATELET COUNT 272 10^3/uL (130-400); WHITE BLOOD COUNT 9.4 10^3/uL (4.3-11.0)
[2023-05-23 09:47] LABS: CHLORIDE 101 MMOL/L (98-107)
[2023-05-23 09:48] LABS: POTASSIUM 3.1 MMOL/L (3.6-5.0); SODIUM 127 MMOL/L (135-145)
[2023-05-23 09:49] LABS: CALCIUM 8.6 MG/DL (8.5-10.1)
[2023-05-23 09:50] LABS: GLUCOSE 105 MG/DL (70-105); TOTAL PROTEIN 6.7 GM/DL (6.4-8.2)
[2023-05-23 09:51] LABS: CARBON DIOXIDE 17 MMOL/L (21-32)
[2023-05-23 09:52] LABS: BILIRUBIN,TOTAL 0.6 MG/DL (0.1-1.0)
[2023-05-23 09:53] LABS: ALKALINE PHOSPHATASE 86 U/L (40-136)
[2023-05-23 09:54] LABS: GFR ESTIMATED 88
[2023-05-23 09:55] LABS: BUN/CREATININE RATIO 13
[2023-05-23 09:57] LABS: ALANINE AMINOTRANSFERASE 17 U/L (0-55); MAGNESIUM 1.9 MG/DL (1.6-2.4)
[2023-05-23 09:58] LABS: CREATINE KINASE 192 U/L (29-168); LIPASE 42 U/L (8-78)
[2023-05-23] MEDS ORDERED: levETIRAcetam 1000 mg/NS 100ml 100 ML IV ONE (10:15)
--- NOTE | 2023-05-23 10:37 | ED General ---
General Chief Complaint: General Problems/Pain Stated Complaint: NUMBNESS - ENTIRE BODY Nursing Triage Note: PT BROUGHT IN BY [facility] FROM HOME WITH COMPLAINT OF ALL OVER NUMBNESS. WAS SEEN HERE EARLIER THIS MORNING AND DISCHARGED HOME. PT HAS HX OF METH USE. Source of Information: Patient, EMS, Old Records Exam Limitations: No Limitations History of Present Illness Date Seen by Provider: May 23, 2023 Time Seen by Provider: 08:22 Initial Comments This is a 52-year-old woman with intellectual disabilities and chronic health problems presents to the emergency room via EMS with complaints of numbness around her mouth. She is a poor historian and has difficulty articulating her symptoms. She was just seen this morning and complained of irritation of her throat. See the documentation from that visit for more details. She has had 6 visits in the last month including 1 admission for hypokalemia. Patient had been previously seen for abdominal pain and was diagnosed with mesenteric adenitis by CT. She had also been diagnosed with bacterial vaginosis and treated with Flagyl. She is a client of [employer]. She lives in a skilled nursing. Patient also has a history of methamphetamine use. She reported that she is living in a detention house but we were informed by staff that is not correct. Allergies and Home Medications Allergies Coded Allergies: carbamazepine (Verified Allergy, Severe, WEAKNESS, 10/14/19) divalproex sodium (Verified Allergy, Severe, WEAKNESS, 10/14/19) phenytoin (Verified Allergy, Severe, WEAKNESS, 10/14/19) diphenhydramine (Verified Allergy, Mild, HIVES, 10/14/19) pseudoephedrine (Verified Allergy, Mild, WEAKNESS, 10/14/19) Iodinated Contrast Media (Verified Adverse Reaction, Mild, Vomiting, 05/17/23) Patient Home Medication List Home Medication List Reviewed: Yes Acetaminophen (Tylenol Extra Strength) 500 Mg Tablet, 500 MG PO Q6H PRN for PAIN-MILD (1-4), (Reported) Entered as Reported by: BEE LIM on 05/24/23 1017 Last Action: Held Clindamycin Phosphate (Clindamycin Phosphate) 2 % Cream.appl, 5 GM VG DAILY Prescribed by: Sebastien Springer on 05/24/23 1210 Oxcarbazepine (Oxcarbazepine) 300 Mg Tablet, 300 MG PO BID, (Reported) Entered as Reported by: BEE LIM on 05/24/23 1017 Last Action: Continued Topiramate (Topiramate ER) 150 Mg Cap.spr.24, 150 MG PO BID, (Reported) Entered as Reported by: BEE LIM on 05/24/23 1017 Last Action: Converted Discontinued Medications Albuterol Sulfate (Ventolin Hfa) 1 Puff Puff, 2 PUFF IH Q4H PRN for SHORTNESS OF BREATH, (Reported) Discontinued Reason: No Longer Taking Entered as Reported by: RODRICK ORO on 11/25/191332 Last Action: Discontinued Albuterol/Ipratropium (Combivent Respimat Inhal [place]) 4 Gm Aero, 2 PUFF IH Q4H PRN for SHORTNESS OF BREATH, (Reported) Discontinued Reason: No Longer Taking Entered as Reported by: RODRICK ORO on 11/25/191332 Last Action: Discontinued Cetirizine HCl (Cetirizine HCl) 10 Mg Tablet, 10 MG PO DAILY, (Reported) Discontinued Reason: No Longer Taking Entered as Reported by: RODRICK ORO on 11/25/191332 Last Action: Discontinued Citalopram Hydrobromide (Citalopram HBr) 10 Mg Tablet, 10 MG PO DAILY, (Reported) Discontinued Reason: No Longer Taking Entered as Reported by: RODRICK ORO on 11/25/191332 Last Action: Discontinued Dicyclomine HCl (Dicyclomine HCl) 10 Mg Capsule, 10 MG PO QID PRN for PAIN- MODERATE (5-7), (Reported) Discontinued Reason: No Longer Taking Entered as Reported by: RODRICK ORO on 11/25/191332 Last Action: Discontinued Epinastine HCl (Epinastine HCl) 5 Ml Drops, 5 ML OP BID, (Reported) Discontinued Reason: No Longer Taking Entered as Reported by: RODRICK ORO on 11/25/191332 Last Action: Discontinued Estrogens Conjugated (Premarin) 30 Gm Cr, 30 GM VG 2X PER WEEK, (Reported) Discontinued Reason: No Longer Taking Entered as Reported by: RODRICK ORO on 11/25/191332 Last Action: Discontinued Fexofenadine HCl (Fexofenadine HCl) 180 Mg Tablet, 180 MG PO DAILY, (Reported) Discontinued Reason: No Longer Taking Entered as Reported by: RODRICK ORO on 11/25/191332 Last Action: Discontinued Hydroxyzine HCl (Hydroxyzine HCl) 25 Mg Tablet, (Reported) Discontinued Reason: No Longer Taking Entered as Reported by: DUNG PENA on 05/23/23 0404 Last Action: Discontinued Ibuprofen (Ibuprofen) 800 Mg Tablet, 800 MG PO Q8H PRN for PAIN-MILD, (Reported) Discontinued Reason: No Longer Taking Entered as Reported by: RODRICK ORO on 11/25/191332 Last Action: Discontinued Ipratropium/Albuterol Sulfate (Iprat-Albut 0.5-3(2.5) mg/3 ml) 3 Ml Ampul.neb, 3 ML IH Q12H PRN for SHORTNESS OF BREATH, (Reported) Discontinued Reason: No Longer Taking Entered as Reported by: RODRICK ORO on 11/25/191332 Last Action: Discontinued Lamotrigine (Lamotrigine) 100 Mg Tablet, 50 MG PO BID, (Reported) Discontinued Reason: No Longer Taking Entered as Reported by: RODRICK ORO on 11/25/191332 Last Action: Discontinued Levetiracetam (Levetiracetam) 500 Mg Tablet, 500 MG PO BID WITH MEALS, (Reported) Discontinued Reason: No Longer Taking Entered as Reported by: Nohemi Magaña on 04/27/23 2210 Last Action: Discontinued Metronidazole (Metronidazole) 500 Mg Tablet, 500 MG PO BID Discontinued Reason: No Longer Taking Prescribed by: FRANCA BLACKBURN MD on 05/16/23 1010 Last Action: Discontinued Montelukast Sodium (Montelukast Sodium) 10 Mg Tablet, 10 MG PO DAILY, (Reported) Discontinued Reason: No Longer Taking Entered as Reported by: RODRICK ORO on 11/25/191332 Last Action: Discontinued Olopatadine HCl (Olopatadine HCl) 2.5 Ml Drops, 2.5 ML OP BID, (Reported) Discontinued Reason: No Longer Taking Entered as Reported by: RODRICK ORO on 11/25/191332 Last Action: Discontinued Omeprazole (Omeprazole) 20 Mg Capsule.dr, 20 MG PO BID, (Reported) Discontinued Reason: No Longer Taking Entered as Reported by: RODRICK ORO on 11/25/191332 Last Action: Discontinued Ondansetron (Ondansetron Odt) 4 Mg Tab.rapdis, 4 MG SL Q4H PRN for NAUSEA/VOMITING Discontinued Reason: No Longer Taking Prescribed by: LISBET ORTIZ on 05/17/23 0604 Last Action: Discontinued Promethazine HCl (Promethazine Tablet) 25 Mg Tablet, 25 MG PO Q6H PRN for NAUSEA/VOMITING, (Reported) Discontinued Reason: No Longer Taking Entered as Reported by: RODRICK ORO on 11/25/191332 Last Action: Discontinued Quetiapine Fumarate (Quetiapine Fumarate) 25 Mg Tablet, 25 MG PO TID, (Reported) Discontinued Reason: No Longer Taking Entered as Reported by: RODRICK ORO on 11/25/191332 Last Action: Discontinued Quetiapine Fumarate (Quetiapine Fumarate) 25 Mg Tablet, 25 MG PO HS, (Reported) Discontinued Reason: No Longer Taking Entered as Reported by: RODRICK ORO on 11/25/191332 Last Action: Discontinued Quetiapine Fumarate (Quetiapine Fumarate) 200 Mg Tablet, 200 MG PO EVENING, (Reported) Discontinued Reason: No Longer Taking Entered as Reported by: RODRICK ORO on 11/25/191332 Last Action: Discontinued Topiramate (Topiramate) 200 Mg Tablet, 200 MG PO BID, (Reported) Discontinued Reason: No Longer Taking Entered as Reported by: RODRICK ORO on 11/25/191332 Last Action: Discontinued Topiramate (Topiramate) 50 Mg Tablet, (Reported) Discontinued Reason: No Longer Taking Entered as Reported by: DUNG PENA on 05/23/23 0404 Last Action: Discontinued Review of Systems Review of Systems Constitutional: no symptoms reported EENTM: see HPI Respiratory: no symptoms reported Cardiovascular: no symptoms reported Gastrointestinal: see HPI Genitourinary: see HPI Musculoskeletal: no symptoms reported Skin: no symptoms reported Psychiatric/Neurological: No Symptoms Reported Hematologic/Lymphatic: No Symptoms Reported Immunological/Allergic: no symptoms reported Past Mohonxy-Qvcexc-Dzgxwo Hx Patient Social History Tobacco Use?: No Use of E-Cig and/or Vaping dev: No Substance use?: Yes Substance type: Methamphetamine Alcohol Use?: No Pt feels they are or have been: No Seasonal Allergies Seasonal Allergies: No Past Medical History Surgery/Hospitalization HX: HYSTERECTOMY, TUBAL, BREAST REDUCTION SEIZURES, DEV. 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 oz. kg; 24.00 BMI Method: General Appearance: WD/WN, Anxious HEENT: PERRL/EOMI, Normal ENT Inspection, Other (postnasal drainage noted in the posterior pharynx) Neck: Normal Inspection Respiratory: Lungs Clear, Normal Breath Sounds, No Accessory Muscle Use Cardiovascular: Regular Rate, Rhythm, No Murmur Gastrointestinal: Normal Bowel Sounds, Soft; No Distended; Tenderness (generalized TTP) Extremity: Normal Inspection, No Pedal Edema Neurologic/Psychiatric: Alert, Oriented x3, No Motor/Sensory Deficits, protocol officer II- XII Norm as Tested, Other (anxious mood. No focal deficits identified) Skin: Normal Color, Warm/Dry Progress/Results/Core Measures Suspected Sepsis SIRS Temperature: Pulse: 74 Respiratory Rate: 20 Laboratory Tests 05/23/23 09:30: White Blood Count 9.4 Blood Pressure 138 /82 Mean: 100 Laboratory Tests 05/23/23 09:30: Creatinine 0.80, Platelet Count 272, Total Bilirubin 0.6 Results/Orders Lab Results Laboratory Tests Test 05/23/23 08:43 05/23/23 09:30 Range/Units Urine Color YELLOW Urine Clarity CLEAR Urine pH 6.5 5-9 Urine Specific [place] <=1.005 1.016-1.022 Urine Protein NEGATIVE NEGATIVE Urine Glucose (UA) NEGATIVE NEGATIVE Urine Ketones NEGATIVE NEGATIVE Urine Nitrite NEGATIVE NEGATIVE Urine Bilirubin NEGATIVE NEGATIVE Urine Urobilinogen 0.2 < = 1.0 MG/DL Urine Leukocyte Esterase NEGATIVE NEGATIVE Urine RBC (Auto) TRACE H NEGATIVE Urine RBC NONE /HPF Urine WBC NONE /HPF Urine Squamous Epithelial Cells RARE /HPF Urine Crystals NONE /LPF Urine Bacteria NEGATIVE /HPF Urine Casts NONE /LPF Urine Mucus NEGATIVE /LPF Urine Culture Indicated NO Urine Opiates Screen NEGATIVE NEGATIVE Urine Oxycodone Screen NEGATIVE NEGATIVE Urine Methadone Screen NEGATIVE NEGATIVE Urine Propoxyphene Screen NEGATIVE NEGATIVE Urine Barbiturates Screen NEGATIVE NEGATIVE Ur Tricyclic Antidepressants Screen NEGATIVE NEGATIVE Urine Phencyclidine Screen NEGATIVE NEGATIVE Urine Amphetamines Screen NEGATIVE NEGATIVE Urine Methamphetamines Screen NEGATIVE NEGATIVE Urine Benzodiazepines Screen NEGATIVE NEGATIVE Urine Cocaine Screen NEGATIVE NEGATIVE Urine Cannabinoids Screen NEGATIVE NEGATIVE White Blood Count 9.4 4.3-11.0 10^3/uL Red Blood Count 4.31 3.80-5.11 10^6/uL Hemoglobin 12.0 11.5-16.0 g/dL Hematocrit 37 35-52 % Mean Corpuscular Volume 87 80-99 fL Mean Corpuscular Hemoglobin 28 25-34 pg Mean Corpuscular Hemoglobin Concent 32 32-36 g/dL Red Cell Distribution Width 14.6 H 10.0-14.5 % Platelet Count 272 130-400 10^3/uL Mean Platelet Volume 10.2 9.0-12.2 fL Immature Granulocyte % (Auto) 0 % Neutrophils (%) (Auto) 59 42-75 % Lymphocytes (%) (Auto) 34 12-44 % Monocytes (%) (Auto) 5 0-12 % Eosinophils (%) (Auto) 1 0-10 % Basophils (%) (Auto) 1 0-10 % Neutrophils # (Auto) 5.6 1.8-7.8 10^3/uL Lymphocytes # (Auto) 3.2 1.0-4.0 10^3/uL Monocytes # (Auto) 0.5 0.0-1.0 10^3/uL Eosinophils # (Auto) 0.1 0.0-0.3 10^3/uL Basophils # (Auto) 0.1 0.0-0.1 10^3/uL Immature Granulocyte # (Auto) 0.0 0.0-0.1 10^3/uL Sodium Level 127 L 135-145 MMOL/L Potassium Level 3.1 L 3.6-5.0 MMOL/L Chloride Level 101 98-107 MMOL/L Carbon Dioxide Level 17 L 21-32 MMOL/L Anion Gap 9 5-14 MMOL/L Blood Urea Nitrogen 10 7-18 MG/DL Creatinine 0.80 0.60-1.30 MG/DL Estimat Glomerular Filtration Rate 88 BUN/Creatinine Ratio 13 Glucose Level 105 70-105 MG/DL Calcium Level 8.6 8.5-10.1 MG/DL Corrected Calcium 8.6 8.5-10.1 MG/DL Magnesium Level 1.9 1.6-2.4 MG/DL Total Bilirubin 0.6 0.1-1.0 MG/DL Aspartate Amino Transf (AST/SGOT) 24 5-34 U/L Alanine Aminotransferase (ALT/SGPT) 17 0-55 U/L Alkaline Phosphatase 86 40-136 U/L Total Creatine Kinase 192 H 29-168 U/L C-Reactive Protein High Sensitivity 0.16 0.00-0.50 MG/DL Total Protein 6.7 6.4-8.2 GM/DL Albumin 4.0 3.2-4.5 GM/DL Lipase 42 8-78 U/L Serum Alcohol < 10 <10 MG/DL My Orders Orders - LISBET LOPEZ MD Alcohol (05/23/23 08:45) Cbc And Automated Diff (05/23/23 08:45) Comprehensive Metabolic Panel (05/23/23 08:45) Drug Screen Stat (Urine) (05/23/23 08:45) Lipase (05/23/23 08:45) Magnesium (05/23/23 08:45) Ua Culture If Indicated (05/23/23 08:45) Ed Iv/Invasive Line Start (05/23/23 08:45) Creatine Kinase (05/23/23 08:47) Hs C Reactive Protein (05/23/23 08:47) Lorazepam Injection (Lorazepam Injection (05/23/23 09:55) Levetiracetam 1000 Mg/Ns 100ml (Keppra I (05/23/23 10:15) Potassium Cl 10meq/50ml Ivpb (Kcl 10 Meq (05/23/23 12:15) Ns Iv 1000 Ml (Ns Iv 1000 Ml) (05/23/23 12:15) Ketorolac Injection (Ketorolac Injection (05/23/23 12:45) Medications Given in ED Vital Signs/I&O 05/23/23 05/23/23 08:30 12:47 Temp 35.0 Pulse 74 59 Resp 20 16 B/P (MAP) 138/82 (100) 123/88 Pulse Ox 98 O2 Delivery Room Air Room Air Capillary Refill : Blood Pressure Mean: 100 Progress Note #1: Time: 12:04 Progress Note Patient was interviewed and examined shortly after arrival. Report was received from EMS. Labs were obtained. While labs are being processed, patient had a seizure and was postictal on my reevaluation. She was given Keppra 1000 mg IV. Staff from [place] report they are unsure if she is compliant with her medications. Patient is now alert and complains of abdominal pain. She had re ceived Toradol on a recent visit for her mesenteric adenitis. We will repeat that today. I have discussed the case with Dr. Flores, attending physician for the [facility] hospital service. She and I agree that admission for observation is appropriate at this point. She needs evaluation of her medications and social circumstances. I am recommending that Flagyl be discontinued as it may have lowered her seizure threshold, especially if compliance has not been consistent. Progress Note #2: Progress Note Labs were reviewed and interpreted in their entirety by me. CBC was normal. CMP was remarkable for hyponatremia with sodium of 127, hypokalemia with potassium of 3.1, and low CO2 of 17. Lipase and CRP were normal. Urine drug screen was negative. CK was slightly elevated at 192. UA was unremarkable. Potassium and sodium replacement were initiate in the ER by IV route. Departure Communication (Admissions) Time/Spoke to Admitting Phy: 11:12 Dr. Flores Impression Primary Impression: Seizure Additional Impressions: Abdominal pain Qualified Codes: R10.84 - Generalized abdominal pain Frequent patient in emergency department Disposition: ADMITTED INPATIENT Condition: Stable Admissions Decision to Admit Reason: Admit from ER (General) Decision to Admit/Date: May 23, 2023 Time/Decision to Admit Time: 11:12 Departure-Patient Inst. Referrals: [facility] (PCP/Family) Primary Care Physician Scripts Clindamycin Phosphate (Clindamycin Phosphate) 2 % Cream.appl 5 GM VG DAILY for 7 Days, #1 APPLIC Prov: SEBASTIEN SPRINGER MD, RESIDENT 05/24/23 Copy Copies To 1: [facility]/LISBET PLATT MD May 23, 2023 10:37
[2023-05-23] MEDS ORDERED: NS IV 1000 ML 1,000 ML IV ONE (12:15)
[2023-05-23] MEDS ORDERED: POTASSIUM CL 10MEQ/50ML IVPB 50 ML IV ONE (12:15)
[2023-05-23] MEDS ORDERED: KETOROLAC INJ 30 MG/ML VIAL IVP ONE (12:45)
[2023-05-23] MEDS: NS IV 1000 ML 1,000 ML IV SCH ×2 (14:35→21:10)
[2023-05-23] MEDS ORDERED: ONDANSETRON INJECTION 4 MG/2 ML (SDV) IVP PRN (14:45)
[2023-05-23] MEDS: POTASSIUM CL 10 MEQ/50 ML IVPB (PRE-MIX) IV SCH ×2 (15:18→16:05)
[2023-05-23 15:37] VITALS: BP 124/70
[2023-05-23 19:23] VITALS: BP 117/70
[2023-05-24] VITALS: BP 118/55
[2023-05-24 03:29] VITALS: BP 106/65
[2023-05-24] MEDS: NS IV 1000 ML 1,000 ML IV SCH ×2 (03:37→10:15)
--- NOTE | 2023-05-24 06:16 | History & Physical ---
SEBATSIEN KNIGHT MD, RESIDENT 05/24/23 0616: HPI History of Present Illness: Patient presented to the ED with symptoms of all over body numbness that started around 7am yesterday. She notes she was shaking alot but denied any other symptoms. Does note that she used meth right before presenting to the hospita. She smokes marijuana but denies any other drug use or recent alcohol use. Patient states she has a history of brain surgery in 2010 and is prone to seizures because of it. She notes that she is on depakote, phenobarbital and an anxiety pill at home. Of note, she was recently diagnosed with BV with a positive genital culture and thus was prescribed flagyl. Patient states she feels well today. Has been able to walk around and tolerate oral intake. Does not have any other concerns today. She is ok with going home today. Source: patient Exam Limitations: no limitations Date seen by provider: May 24, 2023 Time Seen by Provider: 07:46 Attending Physician [facility] PCP Admitting Physician: Michael Flores MD Attending Physician: Michael Flores MD Consult Date of Admission May 23, 2023 at 12:47 Home Medications Home Medications Reviewed patient Home Medication Reconciliation performed by pharmacy medication reconciliations diesel automotive technician and/or nursing. Patients Allergies have been reviewed. Allergies Coded Allergies: carbamazepine (Verified Allergy, Severe, WEAKNESS, 10/14/19) divalproex sodium (Verified Allergy, Severe, WEAKNESS, 10/14/19) phenytoin (Verified Allergy, Severe, WEAKNESS, 10/14/19) diphenhydramine (Verified Allergy, Mild, HIVES, 10/14/19) pseudoephedrine (Verified Allergy, Mild, WEAKNESS, 10/14/19) Iodinated Contrast Media (Verified Adverse Reaction, Mild, Vomiting, 05/17/23) CQW-[id number]-Lwrcao Hx Patient Social History 2nd Hand Smoke Exposure: Yes Recent Hopitalizations: No Alcohol Use?: Yes Substance type: Caffeine, Methamphetamine Immunizations Up To Date Influenza Vaccine Up-to-Date: Yes; Up-to-Date Review of Systems ([facility]) Constitutional: no symptoms reported, see HPI EENTM: no symptoms reported Respiratory: No cough, No short of breath Cardiovascular: No chest pain, No edema, No palpitations Gastrointestinal: No abdominal pain, No constipation, No diarrhea, No nausea, No vomiting Genitourinary: No decreased output, No dysuria Musculoskeletal: no symptoms reported Skin: no symptoms reported Psychiatric/Neurological: Denies Numbness, Denies Seizure, Denies Weakness Reviewed Test Results Reviewed Test Results Lab Laboratory Tests 05/24/23 06:28: White Blood Count 7.5, Red Blood Count 4.15, Hemoglobin 11.8, Hematocrit 36, Mean Corpuscular Volume 86, Mean Corpuscular Hemoglobin 28, Mean Corpuscular Hemoglobin Concent 33, Red Cell Distribution Width 15.0H, Platelet Count 245, Mean Platelet Volume 10.2, Immature Granulocyte % (Auto) 0, Neutrophils (%) (A uto) 49, Lymphocytes (%) (Auto) 43, Monocytes (%) (Auto) 5, Eosinophils (%) (Auto) 2, Basophils (%) (Auto) 1, Neutrophils # (Auto) 3.7, Lymphocytes # (Auto) 3.2, Monocytes # (Auto) 0.4, Eosinophils # (Auto) 0.2, Basophils # (Auto) 0.0, Immature Granulocyte # (Auto) 0.0, Sodium Level 141, Potassium Level 3.9, Chloride Level 118#H, Carbon Dioxide Level 17L, Anion Gap 6, Blood Urea Nitrogen 7, Creatinine 0.71, Estimat Glomerular Filtration Rate 101, BUN/Creatinine Ratio 10, Glucose Level 78, Calcium Level 8.0L, Corrected Calcium 8.6, Magnesium Level 2.2, Total Bilirubin 0.3, Aspartate Amino Transf (AST/SGOT) 19, Alanine Aminotransferase (ALT/SGPT) 13, Alkaline Phosphatase 70, Total Protein 5.4L, Albumin 3.3 Physical Exam-([facility]) Physical Exam Vital Signs VS - Last 72 Hours, by Label 05/23/23 05/23/23 05/23/23 05/23/23 08:30 12:47 15:12 15:37 Temp 35.0 36.0 Pulse 74 59 68 70 Resp 20 16 18 B/P (MAP) 138/82 (100) 123/88 124/70 (88) Pulse Ox 98 98 O2 Delivery Room Air Room Air Room Air 05/23/23 05/23/23 05/23/23 05/23/23 16:08 19:00 19:23 19:50 Temp 36.0 Pulse 62 73 Resp 18 B/P (MAP) 117/70 (86) Pulse Ox 94 94 O2 Delivery Room Air Room Air Room Air 05/24/23 05/24/23 05/24/23 05/24/23 00:00 01:00 03:29 06:58 Temp 35.9 37.1 Pulse 66 70 59 62 Resp 18 20 B/P (MAP) 118/55 (76) 106/65 (79) Pulse Ox 95 96 O2 Delivery Room Air 05/24/23 05/24/23 05/24/23 05/24/23 08:11 08:34 10:25 11:42 Temp 36.4 36.1 Pulse 65 59 Resp 16 17 B/P (MAP) 134/66 (88) 122/58 (79) Pulse Ox 98 98 O2 Delivery Room Air Room Air Room Air Room Air O2 Flow Rate 0.00 Capillary Refill : General Appearance: WD/WN, no apparent distress HEENT: PERRL/EOMI Neck: full range of motion, normal inspection Respiratory: chest non-tender, lungs clear, normal breath sounds, no respiratory distress, no accessory muscle use Cardiovascular: regular rate, rhythm, no edema, no murmur Gastrointestinal: normal bowel sounds, non tender, soft Neurologic/Psychiatric: alert, normal mood/affect, oriented x 3; No motor w eakness Skin: normal color Assessment/Plan Assessment/Plan Admission Status: Observation (1) Seizure Status: Chronic Assessment & Plan: Patient on chronic seizure medications. Recently took flagyl which likely lowered the seizure threshold. No further seizures overnight. Plan: -discharge home with home seizure medications -Close follow up with PCP (2) Methamphetamine use Status: Acute Assessment & Plan: Patient noted recent use however none detected in urine. Plan: -recommend discontinuing meth use (3) Hyponatremia Status: Resolved Assessment & Plan: Initially hyponatremic to 127 which resolved to 141 today. Plan: -monitor daily CMP (4) Hypokalemia Status: Resolved Assessment & Plan: Initial potassium of 3.1. S/p repletion in the ED. Improved to 3.9 today. (5) Bacterial vaginosis Status: Acute Assessment & Plan: Noted to have BV on recent genital culture from 05/16. Plan: -Discontinue flagyl as this likely lowered the seizure threshold -Will prescribe vaginal clindamcin 2% cream 5g to be used daily for 7 days. MICHAEL FLORES MD 05/24/23 1542: Home Medications Allergies Coded Allergies: carbamazepine (Verified Allergy, Severe, WEAKNESS, 10/14/19) divalproex sodium (Verified Allergy, Severe, WEAKNESS, 10/14/19) phenytoin (Verified Allergy, Severe, WEAKNESS, 10/14/19) diphenhydramine (Verified Allergy, Mild, HIVES, 10/14/19) pseudoephedrine (Verified Allergy, Mild, WEAKNESS, 10/14/19) Iodinated Contrast Media (Verified Adverse Reaction, Mild, Vomiting, 05/17/23) Supervisory-Addendum Brief Supervisory Addendum I personally performed the patel portions of the visit, discussed case with resident and concur with resident documentation of history, physical exam, assessment and treatment plan unless otherwise noted. Likely had breakthru seizure after being started on treatment for BV with flagyl, no further seizure activity. Patient ready to d/c home. SEBASTIEN KNIGHT MD, RESIDENT May 24, 2023 06:16 MICHAEL FLORES MD May 24, 2023 15:42
[2023-05-24 07:00] LABS: BASOPHILS % (AUTO) 1 % (0-10); EOSINOPHILS # (AUTO) 0.2 10^3/uL (0.0-0.3); EOSINOPHILS % (AUTO) 2 % (0-10); HEMATOCRIT 36 % (35-52); HEMOGLOBIN 11.8 g/dL (11.5-16.0); LYMPHOCYTES # (AUTO) 3.2 10^3/uL (1.0-4.0); LYMPHOCYTES % (AUTO) 43 % (12-44); MEAN CORPUSCULAR HEMOGLOBIN 28 pg (25-34); MEAN CORPUSCULAR HGB CONC 33 g/dL (32-36); MEAN CORPUSCULAR VOLUME 86 fL (80-99); MEAN PLATELET VOLUME 10.2 fL (9.0-12.2); MONOCYTES # (AUTO) 0.4 10^3/uL (0.0-1.0); MONOCYTES % (AUTO) 5 % (0-12); NEUTROPHILS # (AUTO) 3.7 10^3/uL (1.8-7.8); NEUTROPHILS % (AUTO) 49 % (42-75); PLATELET COUNT 245 10^3/uL (130-400); WHITE BLOOD COUNT 7.5 10^3/uL (4.3-11.0)
[2023-05-24 07:22] LABS: ALBUMIN 3.3 GM/DL (3.2-4.5); BILIRUBIN,TOTAL 0.3 MG/DL (0.1-1.0); CREATININE SERUM 0.71 MG/DL (0.60-1.30); MAGNESIUM 2.2 MG/DL (1.6-2.4); TOTAL PROTEIN 5.4 GM/DL (6.4-8.2)
[2023-05-24 07:34] LABS: POTASSIUM 3.9 MMOL/L (3.6-5.0)
[2023-05-24 08:11] VITALS: BP 134/66
[2023-05-24] MEDS ORDERED: ACET-2267 PO ×2 (10:17)
[2023-05-24] MEDS ORDERED: OXCA300T18 PO ×2 (10:17)
[2023-05-24] MEDS ORDERED: TOPI150C4 PO ×2 (10:17)
[2023-05-24 11:42] VITALS: BP 122/58
[2023-05-24] MEDS ORDERED: CLIN40CR VG ×2 (12:10)
--- NOTE | 2023-05-24 12:36 | Discharge Summary ---
SEBASTIEN KNIGHT MD, RESIDENT 05/24/23 1236: Discharge Summary Hospital Course Problems/Diagnosis: (1) Seizure Status: Chronic Assessment & Plan: Patient on chronic seizure medications. Recently took flagyl which likely lowered the seizure threshold. No further seizures overnight. Plan: -discharge home with home seizure medications -Close follow up with PCP (2) Methamphetamine use Status: Acute Assessment & Plan: Patient noted recent use however none detected in urine. Plan: -recommend discontinuing meth use (3) Hyponatremia Status: Resolved Resolution Date/Time: 05/24/23 @ 09:45 Assessment & Plan: Initially hyponatremic to 127 which resolved to 141 today. Plan: -monitor daily CMP (4) Hypokalemia Status: Resolved Resolution Date/Time: 05/24/23 @ 09:46 Assessment & Plan: Initial potassium of 3.1. S/p repletion in the ED. Improved to 3.9 today. (5) Bacterial vaginosis Status: Acute Assessment & Plan: Noted to have BV on recent genital culture from 05/16. Plan: -Discontinue flagyl as this likely lowered the seizure threshold -Will prescribe vaginal clindamcin 2% cream 5g to be used daily for 7 days. Hospital Course Date of Admission: May 23, 2023 at 12:47 Admission Diagnosis : [facility] Date of Discharge: 05/24/23 Discharge Diagnosis: [Seizure] Hospital Course: [Patient initially presented to the ED with all over body numbness and shaking. Of note patient states that she had used meth right before presenting to the hospital. She was witnessed to have seizure while in the ED and was ultimately admitted for observation. Patient has a history of brain surgery in 2009 and is on seizure medication at home which include oxcarbazepine and topiramate. She was also recently diagnosed with bacterial vaginosis and was prescribed Flagyl which was believed to have decreased her seizure threshold and resulted in the seizure. Patient was monitored while inpatient and had no further episodes of seizure. She was otherwise able to walk around and tolerated oral intake. Was ultimately discharged home with close follow-up with PCP. Recommend no further use of Flagyl. Sent over vaginal clindamycin to complete BV treatment.] Labs and Pending Lab Test: Laboratory Tests 05/24/23 06:28: White Blood Count 7.5, Red Blood Count 4.15, Hemoglobin 11.8, Hematocrit 36, Mean Corpuscular Volume 86, Mean Corpuscular Hemoglobin 28, Mean Corpuscular Hemoglobin Concent 33, Red Cell Distribution Width 15.0H, Platelet Count 245, Mean Platelet Volume 10.2, Immature Granulocyte % (Auto) 0, Neutrophils (%) (Auto) 49, Lymphocytes (%) (Auto) 43, Monocytes (%) (Auto) 5, Eosinophils (%) (Auto) 2, Basophils (%) (Auto) 1, Neutrophils # (Auto) 3.7, Lymphocytes # (Auto) 3.2, Monocytes # (Auto) 0.4, Eosinophils # (Auto) 0.2, Basophils # (Auto) 0.0, Immature Granulocyte # (Auto) 0.0, Sodium Level 141, Potassium Level 3.9, Chloride Level 118#H, Carbon Dioxide Level 17L, Anion Gap 6, Blood Urea Nitrogen 7, Creatinine 0.71, Estimat Glomerular Filtration Rate 101, BUN/Creatinine Ratio 10, Glucose Level 78, Calcium Level 8.0L, Corrected Calcium 8.6, Magnesium Level 2.2, Total Bilirubin 0.3, Aspartate Amino Transf (AST/SGOT) 19, Alanine Aminotr ansferase (ALT/SGPT) 13, Alkaline Phosphatase 70, Total Protein 5.4L, Albumin 3.3 Home Meds Active Clindamycin Phosphate 2 % Cream.appl 5 Gm VG DAILY 7 Days Reported Tylenol Extra Strength (Acetaminophen) 500 Mg Tablet 500 Mg PO Q6H PRN Topiramate ER (Topiramate) 150 Mg Cap.spr.24 150 Mg PO BID Oxcarbazepine 300 Mg Tablet 300 Mg PO BID Assessment/Pt DC Instructions Please see electronic discharge instructions given to patient. Discharge Diet: No Restrictions Activity as Tolerated: Yes Discharge Physical Examination Allergies: Coded Allergies: carbamazepine (Verified Allergy, Severe, WEAKNESS, 10/14/19) divalproex sodium (Verified Allergy, Severe, WEAKNESS, 10/14/19) phenytoin (Verified Allergy, Severe, WEAKNESS, 10/14/19) diphenhydramine (Verified Allergy, Mild, HIVES, 10/14/19) pseudoephedrine (Verified Allergy, Mild, WEAKNESS, 10/14/19) Iodinated Contrast Media (Verified Adverse Reaction, Mild, Vomiting, 05/17/23) General Appearance: No Apparent Distress HEENT: PERRL/EOMI Respiratory: Chest Non Tender, Lungs Clear, Normal Breath Sounds, No Accessory Muscle Use, No Respiratory Distress Cardiovascular: Regular Rate, Rhythm, No Edema, No Murmur Gastrointestinal: Normal Bowel Sounds, Non Tender, Soft Extremity: No Pedal Edema Skin: Normal Color Neurologic/Psychiatric: Alert, Oriented x3 MICHAEL ARREDONDO MD 05/24/23 1543: Discharge Summary Discharge Physical Examination Allergies: Coded Allergies: carbamazepine (Verified Allergy, Severe, WEAKNESS, 10/14/19) divalproex sodium (Verified Allergy, Severe, WEAKNESS, 10/14/19) phenytoin (Verified Allergy, Severe, WEAKNESS, 10/14/19) diphenhydramine (Verified Allergy, Mild, HIVES, 10/14/19) pseudoephedrine (Verified Allergy, Mild, WEAKNESS, 10/14/19) Iodinated Contrast Media (Verified Adverse Reaction, Mild, Vomiting, 05/17/23) Supervisory-Addendum Brief Supervisory Addendum I personally performed the patel portions of the visit, discussed case with resident and concur with resident documentation of history, physical exam, assessment and treatment plan unless otherwise noted. See H&P SEBASTIEN KNIGHT MD, RESIDENT May 24, 2023 12:36 MICHAEL ARREDONDO MD May 24, 2023 15:43
[2023-05-24 13:50] VITALS: BP 122/58
[2023-05-24] MEDS ORDERED: toPIRamate 100 MG (TOPAMAX) TAB PO SCH ×2 (21:00)
[2023-05-24] MEDS ORDERED: OXcarbazepine (TRILEPTAL) 300 MG TAB PO SCH (21:00)
== END 2023-05-24 12:48 | disposition home or self-care (01) ==
LOC: EDUNIT# 08:21 → ER 08:22 → UNDOADMOB 12:47 → 4TH 12:47 → UNDODISOB 05-24 12:48
PROVIDERS: ADMIT Family Medicine; ATTEND Family Medicine
DX: R56.9 Unspecified convulsions (principal); E87.1 Hypo-osmolality and hyponatremia; E87.6 Hypokalemia; R10.84 Generalized abdominal pain; N76.0 Acute vaginitis; F15.90 Other stimulant use, unspecified, uncomplicated
CPT/HCPCS: 36415; 80053; 80306; 80320; 81000; 82550; 83690; 83735; 85025; 86141; 96361; 96365; 96375; 96376; G0378

== ENCOUNTER 2023-05-26 23:58 | Emergency (ER) | payer MEDICARE, MEDICAID ==
[~2023-05-26] VITALS: Ht 152 cm; Wt 57.0 kg
[~2023-05-26 23:58] MED LIST changes: +ACET-2267 PO; +CLIN40CR VG; +OXCA300T18 PO; +TOPI150C4 PO
[2023-05-27] VITALS: BP 136/82
--- NOTE | 2023-05-27 00:07 | ED EENT ---
History of Present Illness General Stated Complaint: EAR PX Source: patient, old records History of Present Illness Date Seen by Provider: May 27, 2023 Time Seen by Provider: 00:02 Initial Comments PT ARRIVES VIA EMS FROM HOME C/O SUDDEN ONSET OF RIGHT EAR PAIN, THAT BEGAN AT 2330 TONIGHT, WHILE "JUST SITTING THERE" NO INJURY, AND DENIES PUTTING ANYTHING IN HER EAR NO DRAINAGE NO URI SYMPTOMS HAS NOT TAKEN ANYTHING FOR PAIN THIS IS PT'S 7TH VISIT HERE SINCE 04/27/23 FOR VARIOUS COMPLAINTS PT WITH LONGSTANDING METHAMPHETAMINE USE PCP: [facility] Allergies and Home Medications Allergies Coded Allergies: carbamazepine (Verified Allergy, Severe, WEAKNESS, 10/14/19) divalproex sodium (Verified Allergy, Severe, WEAKNESS, 10/14/19) phenytoin (Verified Allergy, Severe, WEAKNESS, 10/14/19) diphenhydramine (Verified Allergy, Mild, HIVES, 10/14/19) pseudoephedrine (Verified Allergy, Mild, WEAKNESS, 10/14/19) Iodinated Contrast Media (Verified Adverse Reaction, Mild, Vomiting, 05/17/23) Patient Home Medication List Home Medication List Reviewed: Yes Acetaminophen (Tylenol Extra Strength) 500 Mg Tablet, 500 MG PO Q6H PRN for PAIN-MILD (1-4), (Reported) Entered as Reported by: BEE LIM on 05/24/23 1017 Clindamycin Phosphate (Clindamycin Phosphate) 2 % Cream.appl, 5 GM VG DAILY Prescribed by: Lauren Springer on 05/24/23 1210 Oxcarbazepine (Oxcarbazepine) 300 Mg Tablet, 300 MG PO BID, (Reported) Entered as Reported by: BEE LIM on 05/24/23 1017 Topiramate (Topiramate ER) 150 Mg Cap.spr.24, 150 MG PO BID, (Reported) Entered as Reported by: BEE LIM on 05/24/23 1017 Discontinued Medications Albuterol Sulfate (Ventolin Hfa) 1 Puff Puff, 2 PUFF IH Q4H PRN for SHORTNESS OF BREATH, (Reported) Discontinued Reason: No Longer Taking Entered as Reported by: RODRICK ORO on 11/25/19 1333 Albuterol/Ipratropium (Combivent Respimat Inhal Hagerman) 4 Gm Aero, 2 PUFF IH Q4H PRN for SHORTNESS OF BREATH, (Reported) Discontinued Reason: No Longer Taking Entered as Reported by: RODRICK ORO on 11/25/19 1333 Cetirizine HCl (Cetirizine HCl) 10 Mg Tablet, 10 MG PO DAILY, (Reported) Discontinued Reason: No Longer Taking Entered as Reported by: RODRICK ORO on 11/25/19 1333 Citalopram Hydrobromide (Citalopram HBr) 10 Mg Tablet, 10 MG PO DAILY, (Reported) Discontinued Reason: No Longer Taking Entered as Reported by: RODRICK ORO on 11/25/19 1333 Dicyclomine HCl (Dicyclomine HCl) 10 Mg Capsule, 10 MG PO QID PRN for PAIN- MODERATE (5-7), (Reported) Discontinued Reason: No Longer Taking Entered as Reported by: RODRICK ORO on 11/25/19 1333 Epinastine HCl (Epinastine HCl) 5 Ml Drops, 5 ML OP BID, (Reported) Discontinued Reason: No Longer Taking Entered as Reported by: RODRICK ORO on 11/25/19 1333 Estrogens Conjugated (Premarin) 30 Gm Cr, 30 GM VG 2X PER WEEK, (Reported) Discontinued Reason: No Longer Taking Entered as Reported by: RODRICK ORO on 11/25/19 1333 Fexofenadine HCl (Fexofenadine HCl) 180 Mg Tablet, 180 MG PO DAILY, (Reported) Discontinued Reason: No Longer Taking Entered as Reported by: RODRICK ORO on 11/25/19 1333 Hydroxyzine HCl (Hydroxyzine HCl) 25 Mg Tablet, (Reported) Discontinued Reason: No Longer Taking Entered as Reported by: DUNG PENA on 05/23/23 0404 Ibuprofen (Ibuprofen) 800 Mg Tablet, 800 MG PO Q8H PRN for PAIN-MILD, (Reported) Discontinued Reason: No Longer Taking Entered as Reported by: RODRICK ORO on 11/25/19 1333 Ipratropium/Albuterol Sulfate (Iprat-Albut 0.5-3(2.5) mg/3 ml) 3 Ml Ampul.neb, 3 ML IH Q12H PRN for SHORTNESS OF BREATH, (Reported) Discontinued Reason: No Longer Taking Entered as Reported by: RODRICK ORO on 11/25/19 1333 Lamotrigine (Lamotrigine) 100 Mg Tablet, 50 MG PO BID, (Reported) Discontinued Reason: No Longer Taking Entered as Reported by: RODRICK ORO on 11/25/19 1333 Levetiracetam (Levetiracetam) 500 Mg Tablet, 500 MG PO BID WITH MEALS, (Reported) Discontinued Reason: No Longer Taking Entered as Reported by: Nohemi Magaña on 04/27/23 2210 Metronidazole (Metronidazole) 500 Mg Tablet, 500 MG PO BID Discontinued Reason: No Longer Taking Prescribed by: FRANCA BLACKBURN MD on 05/16/23 1010 Montelukast Sodium (Montelukast Sodium) 10 Mg Tablet, 10 MG PO DAILY, (Reported) Discontinued Reason: No Longer Taking Entered as Reported by: RODRICK ORO on 11/25/19 1333 Olopatadine HCl (Olopatadine HCl) 2.5 Ml Drops, 2.5 ML OP BID, (Reported) Discontinued Reason: No Longer Taking Entered as Reported by: RODRICK ORO on 11/25/19 1333 Omeprazole (Omeprazole) 20 Mg Capsule.dr, 20 MG PO BID, (Reported) Discontinued Reason: No Longer Taking Entered as Reported by: RODRICK ORO on 11/25/19 1333 Ondansetron (Ondansetron Odt) 4 Mg Tab.rapdis, 4 MG SL Q4H PRN for NAUSEA/VOMITING Discontinued Reason: No Longer Taking Prescribed by: LISBET ORTIZ on 05/17/23 0604 Promethazine HCl (Promethazine Tablet) 25 Mg Tablet, 25 MG PO Q6H PRN for NAUSEA/VOMITING, (Reported) Discontinued Reason: No Longer Taking Entered as Reported by: RODRICK ORO on 11/25/19 1333 Quetiapine Fumarate (Quetiapine Fumarate) 25 Mg Tablet, 25 MG PO TID, (Reported) Discontinued Reason: No Longer Taking Entered as Reported by: RODRICK ORO on 11/25/19 1333 Quetiapine Fumarate (Quetiapine Fumarate) 25 Mg Tablet, 25 MG PO HS, (Reported) Discontinued Reason: No Longer Taking Entered as Reported by: RODRICK ORO on 11/25/19 1333 Quetiapine Fumarate (Quetiapine Fumarate) 200 Mg Tablet, 200 MG PO EVENING, (Reported) Discontinued Reason: No Longer Taking Entered as Reported by: RODRICK ORO on 11/25/19 1333 Topiramate (Topiramate) 200 Mg Tablet, 200 MG PO BID, (Reported) Discontinued Reason: No Longer Taking Entered as Reported by: RODRICK ORO on 11/25/19 1333 Topiramate (Topiramate) 50 Mg Tablet, (Reported) Discontinued Reason: No Longer Taking Entered as Reported by: DUNG PENA on 05/23/23 0404 Review of Systems Review of Systems Constitutional: no symptoms reported Eyes: No Symptoms Reported Ears: See HPI Nose: no symptoms reported Mouth: no symptoms reported Throat: no symptoms reported Respiratory: no symptoms reported Cardiovascular: no symptoms reported Gastrointestinal: no symptoms reported Skin: no symptoms reported Neurological: See HPI Past Ojekkmm-Hnijqm-Gelodg Hx Patient Social History Tobacco Use?: No Use of E-Cig and/or Vaping dev: No Substance use?: Yes Substance type: Methamphetamine Alcohol Use?: No Seasonal Allergies Seasonal Allergies: No Past Medical History Surgery/Hospitalization HX: HYSTERECTOMY, TUBAL, BREAST REDUCTION SEIZURES, DEV. 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 oz. 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 Decision time for Depature: 00:06 Referrals: [facility] (PCP/Family) Primary Care Physician Patient Instructions: Ear Pain ED Add. Discharge Instructions: TAKE TYLENOL 1 GRAM PLUS MOTRIN 800 MG EVERY 6 HOURS FOR PAIN DO NOT PUT ANYTHING IN YOUR EAR FOLLOW UP WITH [facility] IF YOUR SYMPTOMS CONTINUE KEMAL SEN DO May 27, 2023 00:06
== END 2023-05-27 00:09 | disposition home or self-care (01) ==
LOC: EDUNIT# 23:58 → ER 05-27
DX: H92.01 Otalgia, right ear (principal); J45.909 Unspecified asthma, uncomplicated; Z99.81 Dependence on supplemental oxygen
CPT/HCPCS: 99283

== ENCOUNTER 2023-05-28 10:38 | Emergency (ER) | payer MEDICARE, MEDICAID ==
[~2023-05-28] VITALS: Ht 152 cm; Wt 57.0 kg
[2023-05-28] MEDS ORDERED: LORazepam 0.5 MG TABLET PO ONE (11:30)
--- NOTE | 2023-05-28 11:33 | ED Cardiac General ---
History of Present Illness General Chief Complaint: Chest Pain Stated Complaint: CHEST PAINS Nursing Triage Note: PT BROUGHT IN BY [facility] FROM [facility] WITH COMPLAINT OF CP, LEG AND ARM NUMBNESS, ABD PAIN AND NAUSEA. PT LIVES IN A SKILLED NURSING RAN BY [facility]. STATES SHE RAN OUT OF HER HOME THIS MORNING BECAUSE HER CAREGIVER IS A BITCH AND WOULD NOT CALL THE AMBULANCE FOR HER. Source: patient Exam Limitations: other (Intellectual disabilities) History of Present Illness Date Seen by Provider: May 28, 2023 Time Seen by Provider: 11:22 Initial Comments 52-year-old female with intellectual disabilities presents to the ER via EMS with complaint of a panic attack that started last night. She reports chest pain which started last night, states that it has been constant since then. She reports some shortness of air with the pain. She also complains of abdominal pain and nausea, denies vomiting. Patient crying during assessment. Difficult evaluation due to intellectual disabilities. Patient stays at a snf, no staff from her snf here with patient. Patient does have a history of methamphetamine abuse. 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 (324) Allergies and Home Medications Allergies Coded Allergies: carbamazepine (Verified Allergy, Severe, WEAKNESS, 10/14/19) divalproex sodium (Verified Allergy, Severe, WEAKNESS, 10/14/19) phenytoin (Verified Allergy, Severe, WEAKNESS, 10/14/19) diphenhydramine (Verified Allergy, Mild, HIVES, 10/14/19) pseudoephedrine (Verified Allergy, Mild, WEAKNESS, 10/14/19) Iodinated Contrast Media (Verified Adverse Reaction, Mild, Vomiting, 05/17/23) Patient Home Medication List Home Medication List Reviewed: Yes Acetaminophen (Tylenol Extra Strength) 500 Mg Tablet, 500 MG PO Q6H PRN for PAIN-MILD (1-4), (Reported) Entered as Reported by: BEE LIM on 05/24/23 1017 Clindamycin Phosphate (Clindamycin Phosphate) 2 % Cream.appl, 5 GM VG DAILY Prescribed by: Lauren Springer on 05/24/23 1210 Oxcarbazepine (Oxcarbazepine) 300 Mg Tablet, 300 MG PO BID, (Reported) Entered as Reported by: BEE LIM on 05/24/23 1017 Topiramate (Topiramate ER) 150 Mg Cap.spr.24, 150 MG PO BID, (Reported) Entered as Reported by: BEE LIM on 05/24/23 1017 Discontinued Medications Albuterol Sulfate (Ventolin Hfa) 1 Puff Puff, 2 PUFF IH Q4H PRN for SHORTNESS OF BREATH, (Reported) Discontinued Reason: No Longer Taking Entered as Reported by: RODRICK ORO on 11/25/19 1333 Albuterol/Ipratropium (Combivent Respimat Inhal [place]) 4 Gm Aero, 2 PUFF IH Q4H PRN for SHORTNESS OF BREATH, (Reported) Discontinued Reason: No Longer Taking Entered as Reported by: RODRICK ORO on 11/25/19 1333 Cetirizine HCl (Cetirizine HCl) 10 Mg Tablet, 10 MG PO DAILY, (Reported) Discontinued Reason: No Longer Taking Entered as Reported by: RODRICK ORO on 11/25/19 1333 Citalopram Hydrobromide (Citalopram HBr) 10 Mg Tablet, 10 MG PO DAILY, (Reported) Discontinued Reason: No Longer Taking Entered as Reported by: RODRICK ORO on 11/25/19 1333 Dicyclomine HCl (Dicyclomine HCl) 10 Mg Capsule, 10 MG PO QID PRN for PAIN- MODERATE (5-7), (Reported) Discontinued Reason: No Longer Taking Entered as Reported by: RODRICK ORO on 11/25/19 1333 Epinastine HCl (Epinastine HCl) 5 Ml Drops, 5 ML OP BID, (Reported) Discontinued Reason: No Longer Taking Entered as Reported by: RODRICK ORO on 11/25/19 1333 Estrogens Conjugated (Premarin) 30 Gm Cr, 30 GM VG 2X PER WEEK, (Reported) Discontinued Reason: No Longer Taking Entered as Reported by: RODRICK ORO on 11/25/19 1333 Fexofenadine HCl (Fexofenadine HCl) 180 Mg Tablet, 180 MG PO DAILY, (Reported) Discontinued Reason: No Longer Taking Entered as Reported by: RODRICK ORO on 11/25/19 1333 Hydroxyzine HCl (Hydroxyzine HCl) 25 Mg Tablet, (Reported) Discontinued Reason: No Longer Taking Entered as Reported by: DUNG PENA on 05/23/23 0404 Ibuprofen (Ibuprofen) 800 Mg Tablet, 800 MG PO Q8H PRN for PAIN-MILD, (Reported) Discontinued Reason: No Longer Taking Entered as Reported by: RODRICK ORO on 11/25/19 1333 Ipratropium/Albuterol Sulfate (Iprat-Albut 0.5-3(2.5) mg/3 ml) 3 Ml Ampul.neb, 3 ML IH Q12H PRN for SHORTNESS OF BREATH, (Reported) Discontinued Reason: No Longer Taking Entered as Reported by: RODRICK ORO on 11/25/19 1333 Lamotrigine (Lamotrigine) 100 Mg Tablet, 50 MG PO BID, (Reported) Discontinued Reason: No Longer Taking Entered as Reported by: RODRICK ORO on 11/25/19 1333 Levetiracetam (Levetiracetam) 500 Mg Tablet, 500 MG PO BID WITH MEALS, (Reported) Discontinued Reason: No Longer Taking Entered as Reported by: Nohemi Magaña on 04/27/23 2210 Metronidazole (Metronidazole) 500 Mg Tablet, 500 MG PO BID Discontinued Reason: No Longer Taking Prescribed by: FRANCA BLACKBURN MD on 05/16/23 1010 Montelukast Sodium (Montelukast Sodium) 10 Mg Tablet, 10 MG PO DAILY, (Reported) Discontinued Reason: No Longer Taking Entered as Reported by: RODRICK ORO on 11/25/19 1333 Olopatadine HCl (Olopatadine HCl) 2.5 Ml Drops, 2.5 ML OP BID, (Reported) Discontinued Reason: No Longer Taking Entered as Reported by: RODRICK ORO on 11/25/19 1333 Omeprazole (Omeprazole) 20 Mg Capsule.dr, 20 MG PO BID, (Reported) Discontinued Reason: No Longer Taking Entered as Reported by: RODRICK ORO on 11/25/19 1333 Ondansetron (Ondansetron Odt) 4 Mg Tab.rapdis, 4 MG SL Q4H PRN for NAUSEA/VOMITING Discontinued Reason: No Longer Taking Prescribed by: LISBET ORTIZ on 05/17/23 0604 Promethazine HCl (Promethazine Tablet) 25 Mg Tablet, 25 MG PO Q6H PRN for NAUSEA/VOMITING, (Reported) Discontinued Reason: No Longer Taking Entered as Reported by: RODRICK ORO on 11/25/19 1333 Quetiapine Fumarate (Quetiapine Fumarate) 25 Mg Tablet, 25 MG PO TID, (Reported) Discontinued Reason: No Longer Taking Entered as Reported by: RODRICK ORO on 11/25/19 1333 Quetiapine Fumarate (Quetiapine Fumarate) 25 Mg Tablet, 25 MG PO HS, (Reported) Discontinued Reason: No Longer Taking Entered as Reported by: RODRICK ORO on 11/25/19 133 Quetiapine Fumarate (Quetiapine Fumarate) 200 Mg Tablet, 200 MG PO EVENING, (Reported) Discontinued Reason: No Longer Taking Entered as Reported by: RODRICK ORO on 11/25/19 133 Topiramate (Topiramate) 200 Mg Tablet, 200 MG PO BID, (Reported) Discontinued Reason: No Longer Taking Entered as Reported by: RODRICK ORO on 11/25/19 1333 Topiramate (Topiramate) 50 Mg Tablet, (Reported) Discontinued Reason: No Longer Taking Entered as Reported by: DUNG PENA on 05/23/23 0404 Review of Systems Review of Systems Constitutional: see HPI Past Kokvxlb-Bjzjzy-Tmakka Hx Patient Social History Tobacco Use?: No Use of E-Cig and/or Vaping dev: No Substance use?: Yes Substance type: Methamphetamine Alcohol Use?: No Pt feels they are or have been: No Seasonal Allergies Seasonal Allergies: No Past Medical History Surgery/Hospitalization HX: HYSTERECTOMY, TUBAL, BREAST REDUCTION SEIZURES, DEV. 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 Sexually Transmitted Disease: No HIV/AIDS: No Genitourinary: No Gastrointestinal: Yes (GASTRITIS) Gastroesophageal Reflux Musculoskeletal: No Endocrine: No HEENT: Yes (GLASSES) Loss of Vision: Denies Hearing Impairment: Denies Cancer: No Psychosocial: Yes Anxiety, Bipolar Integumentary: No Blood Disorders: No Adverse Reaction/Blood Tranf: No (N/A) Family Medical History SOCIAL HISTORY: -SMOKING--DENIES USE -ETOH--DENIES USE -DRUGS--LONGSTANDING METHAMPHETAMINE USE Physical Exam Vital Signs Vital Signs - First Documented 05/28/23 10:38 Pulse 70 Resp 16 B/P (MAP) 107/84 (92) Pulse Ox 100 O2 Delivery Room Air Capillary Refill : Less Than 3 Seconds Height, Weight, BMI Height: '" Weight: lbs. oz. kg; 24.00 BMI Method: General Appearance: WD/WN, Anxious, Other (Crying) Neck: Normal Inspection, Supple Respiratory: Lungs Clear, Normal Breath Sounds, No Accessory Muscle Use, No Respiratory Distress Cardiovascular: Regular Rate, Rhythm Gastrointestinal: Normal Bowel Sounds, Soft; No Guarding; Tenderness (Generalized) Extremity: Normal Inspection, Normal Range of Motion, No Pedal Edema Neurologic/Psychiatric: Alert Skin: Normal Color, Warm/Dry Progress/Results/Core Measures Results/Orders Lab Results Laboratory Tests Test 05/28/23 10:43 05/28/23 11:10 Range/Units White Blood Count 7.4 4.3-11.0 10^3/uL Red Blood Count 4.79 3.80-5.11 10^6/uL Hemoglobin 13.5 11.5-16.0 g/dL Hematocrit 42 35-52 % Mean Corpuscular Volume 88 80-99 fL Mean Corpuscular Hemoglobin 28 25-34 pg Mean Corpuscular Hemoglobin Concent 32 32-36 g/dL Red Cell Distribution Width 14.7 H 10.0-14.5 % Platelet Count 318 130-400 10^3/uL Mean Platelet Volume 10.9 9.0-12.2 fL Immature Granulocyte % (Auto) 0 % Neutrophils (%) (Auto) 56 42-75 % Lymphocytes (%) (Auto) 34 12-44 % Monocytes (%) (Auto) 7 0-12 % Eosinophils (%) (Auto) 1 0-10 % Basophils (%) (Auto) 1 0-10 % Neutrophils # (Auto) 4.2 1.8-7.8 10^3/uL Lymphocytes # (Auto) 2.5 1.0-4.0 10^3/uL Monocytes # (Auto) 0.6 0.0-1.0 10^3/uL Eosinophils # (Auto) 0.1 0.0-0.3 10^3/uL Basophils # (Auto) 0.0 0.0-0.1 10^3/uL Immature Granulocyte # (Auto) 0.0 0.0-0.1 10^3/uL Prothrombin Time 13.5 12.2-14.7 SEC INR Comment 1.0 0.8-1.4 Activated Partial Thromboplast Time 39 H 24-35 SEC Sodium Level 138 135-145 MMOL/L Potassium Level 3.7 3.6-5.0 MMOL/L Chloride Level 107 98-107 MMOL/L Carbon Dioxide Level 17 L 21-32 MMOL/L Anion Gap 14 5-14 MMOL/L Blood Urea Nitrogen 5 L 7-18 MG/DL Creatinine 0.85 0.60-1.30 MG/DL Estimat Glomerular Filtration Rate 81 BUN/Creatinine Ratio 6 Glucose Level 113 H 70-105 MG/DL Calcium Level 8.9 8.5-10.1 MG/DL Corrected Calcium 8.7 8.5-10.1 MG/DL Magnesium Level 2.0 1.6-2.4 MG/DL Total Bilirubin 0.7 0.1-1.0 MG/DL Aspartate Amino Transf (AST/SGOT) 32 5-34 U/L Alanine Aminotransferase (ALT/SGPT) 23 0-55 U/L Alkaline Phosphatase 91 40-136 U/L Troponin I < 0.028 <0.028 NG/ML Total Protein 7.3 6.4-8.2 GM/DL Albumin 4.2 3.2-4.5 GM/DL Lipase 41 8-78 U/L Urine Color YELLOW Urine Clarity CLEAR Urine pH 6.5 5-9 Urine Specific [place] <=1.005 1.016-1.022 Urine Protein NEGATIVE NEGATIVE Urine Glucose (UA) NEGATIVE NEGATIVE Urine Ketones TRACE H NEGATIVE Urine Nitrite NEGATIVE NEGATIVE Urine Bilirubin NEGATIVE NEGATIVE Urine Urobilinogen 0.2 < = 1.0 MG/DL Urine Leukocyte Esterase NEGATIVE NEGATIVE Urine RBC (Auto) NEGATIVE NEGATIVE Urine RBC NONE /HPF Urine WBC NONE /HPF Urine Squamous Epithelial Cells 2-5 /HPF Urine Crystals NONE /LPF Urine Bacteria NEGATIVE /HPF Urine Casts NONE /LPF Urine Mucus NEGATIVE /LPF Urine Culture Indicated NO My Orders Orders - RENETTA LEONARD APRN Cbc And Automated Diff (05/28/23 11:28) Magnesium (05/28/23 11:28) Chest 1 View, Ap/Pa Only (05/28/23 11:28) Comprehensive Metabolic Panel (05/28/23 11:28) Protime With Inr (05/28/23 11:28) Partial Thromboplastin Time (05/28/23 11:28) Monitor-Rhythm Ecg Trace Only (05/28/23 11:28) Ed Iv/Invasive Line Start (05/28/23 11:28) Lipase (05/28/23 11:28) Troponin I [place] (05/28/23 11:28) Lorazepam Tablet (Lorazepam Tablet) (05/28/23 11:30) Ua Culture If Indicated (05/28/23 11:33) Ketorolac Injection (Ketorolac Injection (05/28/23 13:15) Ondansetron Injection (Ondansetron Inj (05/28/23 13:15) Medications Given in ED Current Medications Medications Dose Ordered Sig/Jessenia Route Start Time Stop Time Status Last Admin Dose Admin Ketorolac Tromethamine 15 mg ONCE ONCE IVP 05/28/23 13:15 05/28/23 13:16 DC 05/28/23 13:28 15 MG Lorazepam 0.5 mg ONCE ONCE PO 05/28/23 11:30 05/28/23 11:31 DC 05/28/23 11:59 0.5 MG Ondansetron HCl 4 mg ONCE ONCE IVP 05/28/23 13:15 05/28/23 13:16 DC 05/28/23 13:28 4 MG Vital Signs/I&O 05/28/23 05/28/23 10:38 13:55 Pulse 70 70 Resp 16 16 B/P (MAP) 107/84 (92) 129/79 Pulse Ox 100 100 O2 Delivery Room Air Room Air Blood Pressure Mean: 92 Progress Progress Note : Progress Note Patient seen and evaluated, resting in bed, anxious, tearful during exam. Based on exam and symptoms, work-up initiated included CBC, CMP, magnesium, troponin, coags, lipase, UA, chest x-ray. EKG. Oral Ativan ordered. 1302 Labs and x-ray reviewed. CBC grossly normal, CMP shows slightly decreased CO2 17, magnesium normal, troponin negative, lipase normal. Coags show slightly elevated APTT 39. Urinalysis negative for infection. Chest x-ray shows no acute abnormality. Patient reevaluated, patient still says that she has pain and nausea, she is crying and whining. When I told her that all her results were normal, patient calmed down and stopped crying and whining. Will give Toradol and Zofran and discharge. Patient is stable for discharge. Discharge instructions and return precautions provided. Initial ECG Impression Date: May 28, 2023 Initial ECG Impression Time: 11:17 Initial ECG Rate: 69 Initial ECG Rhythm: Normal Sinus Initial ECG Intervals: Normal Initial ECG Impression: Normal Initial ECG Comparisson: Unchanged Diagnostic Imaging Diagonstic Imaging: Xray Plain Films/CT/US/NM/MRI: chest Comments [facility], [place] NAME: [facility] REC#: [id number] PT STATUS: REG ER : 1970 PHYSICIAN: RENETTA LEONARD APRN ADMIT DATE: 05/28/23/ER Signed Date of Exam:05/28/23 CHEST 1 VIEW, AP/PA ONLY EXAMINATION: Chest, one view. HISTORY: Chest pain. COMPARISON: 04/28/2023. FINDINGS: Heart size and pulmonary vasculature are normal. The lungs are clear without consolidation, pleural effusion, or pneumothorax. The osseous structures are intact. A left-sided metallic device is unchanged. IMPRESSION: 1. No acute radiographic abnormality in the chest. Dictated by: Dictated on workstation # [id number] Dict: 05/28/23 1220 Trans: 05/28/23 1328 [id number] Interpreted by: DUNG GAITAN DO Electronically signed by: DUNG GAITAN DO 05/28/23 1328 Departure Impression Primary Impression: Chest pain Additional Impression: Anxiety Disposition: 01 HOME, SELF-CARE Condition: Stable Departure-Patient Inst. Decision time for Depature: 13:44 Referrals: [facility] (PCP/Family) Primary Care Physician Patient Instructions: Anxiety, Adult ED Add. Discharge Instructions: Follow-up with your primary care provider. Return for any new, concerning, or worsening symptoms. All discharge instructions reviewed with patient and/or family. Voiced understanding. RENETTA LEONARD APRN May 28, 2023 11:33
[2023-05-28 11:35] LABS: BASOPHILS % (AUTO) 1 % (0-10); EOSINOPHILS # (AUTO) 0.1 10^3/uL (0.0-0.3); EOSINOPHILS % (AUTO) 1 % (0-10); HEMATOCRIT 42 % (35-52); HEMOGLOBIN 13.5 g/dL (11.5-16.0); LYMPHOCYTES # (AUTO) 2.5 10^3/uL (1.0-4.0); LYMPHOCYTES % (AUTO) 34 % (12-44); MEAN CORPUSCULAR HEMOGLOBIN 28 pg (25-34); MEAN CORPUSCULAR HGB CONC 32 g/dL (32-36); MEAN CORPUSCULAR VOLUME 88 fL (80-99); MEAN PLATELET VOLUME 10.9 fL (9.0-12.2); MONOCYTES # (AUTO) 0.6 10^3/uL (0.0-1.0); MONOCYTES % (AUTO) 7 % (0-12); NEUTROPHILS # (AUTO) 4.2 10^3/uL (1.8-7.8); NEUTROPHILS % (AUTO) 56 % (42-75); PLATELET COUNT 318 10^3/uL (130-400); WHITE BLOOD COUNT 7.4 10^3/uL (4.3-11.0)
[2023-05-28 11:38] LABS: ALBUMIN 4.2 GM/DL (3.2-4.5); CHLORIDE 107 MMOL/L (98-107); POTASSIUM 3.7 MMOL/L (3.6-5.0); SODIUM 138 MMOL/L (135-145)
[2023-05-28 11:40] LABS: CALCIUM 8.9 MG/DL (8.5-10.1)
[2023-05-28 11:41] LABS: GLUCOSE 113 MG/DL (70-105); PROTHROMBIN TIME PATIENT 13.5 SEC (12.2-14.7); TOTAL PROTEIN 7.3 GM/DL (6.4-8.2)
[2023-05-28 11:42] LABS: BILIRUBIN,TOTAL 0.7 MG/DL (0.1-1.0); CARBON DIOXIDE 17 MMOL/L (21-32)
[2023-05-28 11:44] LABS: ALKALINE PHOSPHATASE 91 U/L (40-136); CREATININE SERUM 0.85 MG/DL (0.60-1.30); GFR ESTIMATED 81
[2023-05-28 11:45] LABS: BUN/CREATININE RATIO 6
[2023-05-28 11:47] LABS: ALANINE AMINOTRANSFERASE 23 U/L (0-55)
[2023-05-28 11:47] LABS: BACTERIA,URINE NEGATIVE /HPF; BILIRUBIN,URINE NEGATIVE (NEGATIVE); CLARITY,URINE CLEAR; COLOR,URINE YELLOW; GLUCOSE, URINE (UA) NEGATIVE (NEGATIVE); KETONES,URINE TRACE (NEGATIVE); LEUKOCYTE ESTERASE ,URINE NEGATIVE (NEGATIVE); NITRITE,URINE NEGATIVE (NEGATIVE); PH,URINE 6.5 (5-9); PROTEIN,URINE NEGATIVE (NEGATIVE)
[2023-05-28 11:48] LABS: LIPASE 41 U/L (8-78)
--- NOTE | 2023-05-28 12:26 | Diagnostic Imaging Report ---
EXAMINATION: Chest, one view. HISTORY: Chest pain. COMPARISON: 04/28/2023. FINDINGS: Heart size and pulmonary vasculature are normal. The lungs are clear without consolidation, pleural effusion, or pneumothorax. The osseous structures are intact. A left-sided metallic device is unchanged. IMPRESSION: 1. No acute radiographic abnormality in the chest. Dictated by: Dictated on workstation # [id number]
[2023-05-28] MEDS ORDERED: ONDANSETRON INJECTION 4 MG/2 ML (SDV) IVP ONE (13:15)
[2023-05-28] MEDS ORDERED: KETOROLAC INJ 15 MG/ML VIAL IVP ONE (13:15)
[2023-05-28 13:55] VITALS: BP 129/79
== END 2023-05-28 13:55 | disposition home or self-care (01) ==
LOC: EDUNIT# 10:38 → ER 10:39
DX: F41.9 Anxiety disorder, unspecified (principal); R07.9 Chest pain, unspecified; F79 Unspecified intellectual disabilities
CPT/HCPCS: 36415; 71045; 80053; 81000; 83690; 83735; 84484; 85025; 85610; 85730; 93005; 93041; 96374; 96375

== ENCOUNTER 2023-06-11 05:48 | Emergency (ER) | payer MEDICARE, MEDICAID ==
[2023-06-11] MEDS ORDERED: ONDANSETRON 4 MG ORAL DISSOLVE TABLET PO ONE (06:00)
--- NOTE | 2023-06-11 06:09 | ED General ---
General Chief Complaint: General Problems/Pain Stated Complaint: THROAT BURNING/METH WITHDRAWAL Source of Information: Patient (EXTREMELY DIFFICULT HISTORIAN), EMS, Old Records History of Present Illness Date Seen by Provider: Jun 11, 2023 Time Seen by Provider: 05:53 Initial Comments PT ARRIVES VIA EMS STATES "I WAS GETTING SICK" C/O THROAT BURNING--THIS IS A FREQUENT COMPLAINT FOR PATIENT TOLD NURSE IT WOKE HER UP PT WITH LONGSTANDING METH USE, WITH ERRATIC SPEECH, EXTREMELY DIFFICULT TO OBTAIN ANY INFORMATION ABOUT WHY SHE IS HERE TODAY THIS IS PT'S 9TH VISIT SINCE 04/27/23, LAST VISIT 05/28/23 AND LABS AND WORK UP WERE NORMAL AT THAT TIME. HAD REPORTED TO EMS THAT SHE WAS WITHDRAWING FROM METH PCP: [facility] [place] Allergies and Home Medications Allergies Coded Allergies: carbamazepine (Verified Allergy, Severe, WEAKNESS, 10/14/19) divalproex sodium (Verified Allergy, Severe, WEAKNESS, 10/14/19) phenytoin (Verified Allergy, Severe, WEAKNESS, 10/14/19) diphenhydramine (Verified Allergy, Mild, HIVES, 10/14/19) pseudoephedrine (Verified Allergy, Mild, WEAKNESS, 10/14/19) Iodinated Contrast Media (Verified Adverse Reaction, Mild, Vomiting, 05/17/23) Patient Home Medication List Home Medication List Reviewed: Yes Acetaminophen (Tylenol Extra Strength) 500 Mg Tablet, 500 MG PO Q6H PRN for PAIN-MILD (1-4), (Reported) Entered as Reported by: BEE LIM on 05/24/23 1017 Clindamycin Phosphate (Clindamycin Phosphate) 2 % Cream.appl, 5 GM VG DAILY Prescribed by: Lauren Springer on 05/24/23 1210 Oxcarbazepine (Oxcarbazepine) 300 Mg Tablet, 300 MG PO BID, (Reported) Entered as Reported by: BEE LIM on 05/24/23 1017 Pantoprazole Sodium (Protonix) 40 Mg Tablet.dr, 40 MG PO DAILY Prescribed by: KEMAL SEN on 06/11/23 0640 Topiramate (Topiramate ER) 150 Mg Cap.spr.24, 150 MG PO BID, (Reported) Entered as Reported by: BEE LIM on 05/24/23 1017 Review of Systems Review of Systems Constitutional: see HPI Past Nnsifjg-Utqjwf-Affhoe Hx Patient Social History Substance use?: Yes Substance type: Methamphetamine Substance frequency: Daily Seasonal Allergies Seasonal Allergies: No Past Medical History Surgery/Hospitalization HX: HYSTERECTOMY, TUBAL, BREAST REDUCTION SEIZURES, DEV. 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 Sexually Transmitted Disease: No HIV/AIDS: No Genitourinary: No Gastrointestinal: Yes (GASTRITIS) Gastroesophageal Reflux Musculoskeletal: No Endocrine: No HEENT: Yes (GLASSES) Loss of Vision: Denies Hearing Impairment: Denies Cancer: No Psychosocial: Yes Anxiety, Bipolar Integumentary: No Blood Disorders: No Adverse Reaction/Blood Tranf: No (N/A) Family Medical History SOCIAL HISTORY: -SMOKING--DENIES USE -ETOH--DENIES USE -DRUGS--LONGSTANDING METHAMPHETAMINE USE Physical Exam Vital Signs Vital Signs - First Documented 06/11/23 05:50 Pulse 68 Resp 16 B/P (MAP) 136/94 (108) Pulse Ox 100 O2 Delivery Room Air Capillary Refill : Height, Weight, BMI Height: '" Weight: lbs. oz. kg; 24.00 BMI Method: General Appearance: WD/WN, Other (CONSTANT MOVEMENTS OF BODY, AND ESPECIALLY MOUTH AND TONGUE; RANDOMLY WAILING FOR NO APPARENT REASON. THIS STOPS IMMEDIATELY WHEN DISTRACTED AND STAFF AT THE BEDSIDE. 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 Norm as Tested, Other (PT IS MENTALLY CHALLENGED) Skin: Normal Color, Warm/Dry Progress/Results/Core Measures Suspected Sepsis SIRS Temperature: Pulse: Respiratory Rate: Blood Pressure / Mean: Results/Orders Lab Results Laboratory Tests Test 06/11/23 06:00 06/11/23 06:15 Range/Units Influenza Type A (RT-PCR) Not Detected Not Detecte Influenza Type B (RT-PCR) Not Detected Not Detecte SARS-CoV-2 RNA (RT-PCR) Not Detected Not Detecte Group A Streptococcus Screen Not Detected NotDetected Urine Color YELLOW Urine Clarity CLEAR Urine pH 5.5 5-9 Urine Specific [place] 1.010 L 1.016-1.022 Urine Protein NEGATIVE NEGATIVE Urine Glucose (UA) NEGATIVE NEGATIVE Urine Ketones NEGATIVE NEGATIVE Urine Nitrite NEGATIVE NEGATIVE Urine Bilirubin NEGATIVE NEGATIVE Urine Urobilinogen 0.2 < = 1.0 MG/DL Urine Leukocyte Esterase NEGATIVE NEGATIVE Urine RBC (Auto) TRACE-I H NEGATIVE Urine RBC NONE /HPF Urine WBC NONE /HPF Urine Squamous Epithelial Cells 0-2 /HPF Urine Crystals NONE /LPF Urine Bacteria FEW H /HPF Urine Casts NONE /LPF Urine Mucus NEGATIVE /LPF Urine Culture Indicated NO Urine Opiates Screen NEGATIVE NEGATIVE Urine Oxycodone Screen NEGATIVE NEGATIVE Urine Methadone Screen NEGATIVE NEGATIVE Urine Barbiturates Screen NEGATIVE NEGATIVE Ur Tricyclic Antidepressants Screen NEGATIVE NEGATIVE Urine Phencyclidine Screen NEGATIVE NEGATIVE Urine Amphetamines Screen NEGATIVE NEGATIVE Urine Methamphetamines Screen NEGATIVE NEGATIVE Urine Benzodiazepines Screen NEGATIVE NEGATIVE Urine Cocaine Screen NEGATIVE NEGATIVE Urine Cannabinoids Screen NEGATIVE NEGATIVE My Orders Orders - KEMAL SEN DO Urine Bedside (06/11/23 05:58) Monitor-Rhythm Ecg Trace Only (06/11/23 05:58) Drug Screen Stat (Urine) (06/11/23 05:58) Rapid Strep A Screen (06/11/23 05:58) Ua Culture If Indicated (06/11/23 05:58) Covid 19 Inhouse Test (06/11/23 05:58) Influenza A And B By Pcr (06/11/23 05:58) Ondansetron Oral Dissolve Tab (Ondanset (06/11/23 06:00) Medications Given in ED Current Medications Medications Dose Ordered Sig/Jessenia Route Start Time Stop Time Status Last Admin Dose Admin Ondansetron HCl 4 mg ONCE ONCE PO 06/11/23 06:00 06/11/23 06:01 DC 06/11/23 06:07 4 MG Vital Signs/I&O 06/11/23 05:50 Pulse 68 Resp 16 B/P (MAP) 136/94 (108) Pulse Ox 100 O2 Delivery Room Air Capillary Refill : Progress Note : Progress Note VITALS STABLE, AFEBRILE PT HAS NO COMPLAINTS AFTER ARRIVAL HERE. STATES SHE DOESN'T FEEL SICK ANYMORE GIVEN ZOFRAN LABS: -STREP NEGATIVE -COVID NEGATIVE -FLU NEGATIVE -UA UNREMARKABLE -UDS NEGATIVE DISCUSSED TEST RESULTS, ANTICIPATED COURSE, MEDICATIONS, NEED FOR FOLLOW UP AND RETURN PRECAUTIONS REVIEWED PRIOR RECORDS, INCLUDING ER VISITS, ADMITS/H&P'S/CONSULTS/DISCHARGE SUMMARIES, TESTS/PROCEDURES Departure Impression Primary Impression: Throat pain in adult Additional Impressions: POSSIBLE GERD 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 disorder History of methamphetamine use Disposition: HOME, SELF-CARE Condition: Stable Departure-Patient Inst. Decision time for Depature: 06:48 Referrals: [facility] ([facility]/Family) Primary Care Physician Patient Instructions: Acid Reflux and GERD in Adults (DC), Sore Throat, Adult (DC) Add. Discharge Instructions: TAKE YOUR MEDICATIONS PRESCRIBED TYLENOL 1 GRAM 4 TIMES A DAY NEEDED FOR PAIN FOLLOW UP WITH [facility] THIS WEEK FOR FURTHER CARE All discharge instructions reviewed with patient and/or family. Voiced understanding. Scripts Pantoprazole Sodium (Protonix) 40 Mg Tablet. 40 MG PO DAILY, #15 TAB Prov: KEMAL SEN DO 06/11/23 KEMAL SEN DO Jun 11, 2023 06:09
[2023-06-11] MEDS ORDERED: PANT40TA2 PO (06:40)
[2023-06-11 06:45] LABS: AMPHETAMINE SCREEN, URINE NEGATIVE (NEGATIVE); BARBITURATE SCREEN URINE NEGATIVE (NEGATIVE); CANNABINOID SCREEN, URINE NEGATIVE (NEGATIVE); COCAINE SCREEN URINE NEGATIVE (NEGATIVE); METHADONE STAT NEGATIVE (NEGATIVE); OPIATE SCREEN URINE NEGATIVE (NEGATIVE); OXYCODONE STAT NEGATIVE (NEGATIVE); TRICYCLIC ANTIDEPRESSANTS SCRE NEGATIVE (NEGATIVE)
[2023-06-11 06:46] LABS: BACTERIA,URINE FEW /HPF; BILIRUBIN,URINE NEGATIVE (NEGATIVE); CLARITY,URINE CLEAR; COLOR,URINE YELLOW; GLUCOSE, URINE (UA) NEGATIVE (NEGATIVE); KETONES,URINE NEGATIVE (NEGATIVE); LEUKOCYTE ESTERASE ,URINE NEGATIVE (NEGATIVE); NITRITE,URINE NEGATIVE (NEGATIVE); PH,URINE 5.5 (5-9); PROTEIN,URINE NEGATIVE (NEGATIVE)
[2023-06-11 06:47] LABS: SQUAMOUS EPITHELIAL CELL,UR 0-2 /HPF
[2023-06-11 06:55] VITALS: BP 132/89
== END 2023-06-11 06:55 | disposition home or self-care (01) ==
LOC: EDUNIT# 05:48 → ER 05:49
DX: R07.0 Pain in throat (principal); F89 Unspecified disorder of psychological development; Z86.59 Personal history of other mental and behavioral disorders
CPT/HCPCS: 80306; 81000; 87430; 87636; 99283

== ENCOUNTER 2023-06-11 11:31 | Emergency (ER) | payer MEDICARE, MEDICAID ==
[~2023-06-11] VITALS: Ht 147.3 cm; Wt 57.0 kg
[~2023-06-11 11:31] MED LIST changes: +PANT40TA2 PO
[2023-06-11 11:56] LABS: BASOPHILS % (AUTO) 0 % (0-10); EOSINOPHILS % (AUTO) 0 % (0-10); HEMATOCRIT 37 % (35-52); HEMOGLOBIN 12.4 g/dL (11.5-16.0); LYMPHOCYTES % (AUTO) 18 % (12-44); MEAN CORPUSCULAR HEMOGLOBIN 28 pg (25-34); MEAN CORPUSCULAR HGB CONC 33 g/dL (32-36); MEAN CORPUSCULAR VOLUME 85 fL (80-99); MONOCYTES # (AUTO) 0.5 10^3/uL (0.0-1.0); MONOCYTES % (AUTO) 5 % (0-12); NEUTROPHILS # (AUTO) 8.5 10^3/uL (1.8-7.8); NEUTROPHILS % (AUTO) 77 % (42-75); PLATELET COUNT 249 10^3/uL (130-400); WHITE BLOOD COUNT 11.1 10^3/uL (4.3-11.0)
--- NOTE | 2023-06-11 12:00 | ED General ---
General Stated Complaint: SEIZURE Source of Information: Patient, EMS, Old Records History of Present Illness Date Seen by Provider: Jun 11, 2023 Time Seen by Provider: 11:33 Initial Comments PT ARRIVES VIA EMS FROM 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 PT WAS SITTING ON THE COUCH, AND THERE ARE NO INJURIES--PT DID NOT HIT ANYTHING OR FALL OFF THE COUCH PT HAS LONGSTANDING SEIZURE DISORDER. WAS REPORTED TO EMS THAT PT HAD ALL OF HER MORNING MEDICATIONS HAVE NOW BEEN INFORMED THAT PT WAS GONE ALL WEEKEND--IS NOT KNOWN WHERE SHE WAS ALL WEEKEND, AND PT DID NOT HAVE HER MEDICATIONS OVER THE WEEKEND. PT WITH HISTORY OF METH USE. THIS IS PT'S 10TH ER VISIT SINCE 04/27/23, AND HER SECOND VISIT HERE THIS MORNING--ALL FOR VARIOUS COMPLAINTS PT CALLS FOR EMS ON A DAILY BASIS, THEN MANY TIMES IS NOT TRANSPORTED. HER VISIT THIS MORNING WAS FOR THROAT PAIN AND NAUSEA ON WAKING. SHE HAD ALSO REPORTED TO EMS THAT SHE WAS WITHDRAWING FROM METH. 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 PCP: [facility] Allergies and Home Medications Allergies Coded Allergies: carbamazepine (Verified Allergy, Severe, WEAKNESS, 10/14/19) divalproex sodium (Verified Allergy, Severe, WEAKNESS, 10/14/19) phenytoin (Verified Allergy, Severe, WEAKNESS, 10/14/19) diphenhydramine (Verified Allergy, Mild, HIVES, 10/14/19) pseudoephedrine (Verified Allergy, Mild, WEAKNESS, 10/14/19) Iodinated Contrast Media (Verified Adverse Reaction, Mild, Vomiting, 05/17/23) Patient Home Medication List Acetaminophen (Tylenol Extra Strength) 500 Mg Tablet, 500 MG PO Q6H PRN for PAIN-MILD (1-4), (Reported) Entered as Reported by: BEE LIM on 05/24/23 1017 Clindamycin Phosphate (Clindamycin Phosphate) 2 % Cream.appl, 5 GM VG DAILY Prescribed by: Lauren Springer on 05/24/23 1210 Oxcarbazepine (Oxcarbazepine) 300 Mg Tablet, 300 MG PO BID, (Reported) Entered as Reported by: BEE LIM on 05/24/23 1017 Pantoprazole Sodium (Protonix) 40 Mg Tablet.dr, 40 MG PO DAILY Prescribed by: KEMAL SEN on 06/11/23 0640 Topiramate (Topiramate ER) 150 Mg Cap.spr.24, 150 MG PO BID, (Reported) Entered as Reported by: BEE LIM on 05/24/23 1017 Review of Systems Review of Systems Constitutional: no symptoms reported EENTM: no symptoms reported, ear discharge Respiratory: no symptoms reported Cardiovascular: no symptoms reported Gastrointestinal: no symptoms reported Genitourinary: no symptoms reported Musculoskeletal: no symptoms reported Skin: no symptoms reported Psychiatric/Neurological: See HPI Hematologic/Lymphatic: No Symptoms Reported Immunological/Allergic: no symptoms reported Past [id number] Hx Patient Social History Substance use?: Yes Substance type: Methamphetamine Seasonal Allergies Seasonal Allergies: No Past Medical History Surgery/Hospitalization HX: HYSTERECTOMY, TUBAL, BREAST REDUCTION SEIZURES, DEV. 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 Sexually Transmitted Disease: No HIV/AIDS: No Genitourinary: No Gastrointestinal: Yes (GASTRITIS) Gastroesophageal Reflux Musculoskeletal: No Endocrine: No HEENT: Yes (GLASSES) Loss of Vision: Denies Hearing Impairment: Denies Cancer: No Psychosocial: Yes Anxiety, Bipolar Integumentary: No Blood Disorders: No Adverse Reaction/Blood Tranf: No (N/A) Family Medical History SOCIAL HISTORY: -SMOKING--DENIES USE -ETOH--DENIES USE -DRUGS--LONGSTANDING METHAMPHETAMINE USE Physical Exam Vital Signs Vital Signs - First Documented 06/11/23 11:33 Temp 36.8 Pulse 88 Resp 16 B/P (MAP) 124/76 (92) O2 Delivery Room Air Capillary Refill : Height, Weight, BMI Height: '" Weight: lbs. oz. 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 ) Skin: Normal Color, Warm/Dry Progress/Results/Core Measures Suspected Sepsis SIRS Temperature: Pulse: Respiratory Rate: Laboratory Tests 06/11/23 11:45: White Blood Count 11.1H Blood Pressure / Mean: Laboratory Tests 06/11/23 11:45: Creatinine 0.76, Platelet Count 249, Total Bilirubin 0.5 Results/Orders Lab Results Laboratory Tests Test 06/11/23 11:45 06/11/23 13:03 Range/Units White Blood Count 11.1 H 4.3-11.0 10^3/uL Red Blood Count 4.41 3.80-5.11 10^6/uL Hemoglobin 12.4 11.5-16.0 g/dL Hematocrit 37 35-52 % Mean Corpuscular Volume 85 80-99 fL Mean Corpuscular Hemoglobin 28 25-34 pg Mean Corpuscular Hemoglobin Concent 33 32-36 g/dL Red Cell Distribution Width 14.1 10.0-14.5 % Platelet Count 249 130-400 10^3/uL Mean Platelet Volume 10.0 9.0-12.2 fL Immature Granulocyte % (Auto) 1 % Neutrophils (%) (Auto) 77 H 42-75 % Lymphocytes (%) (Auto) 18 12-44 % Monocytes (%) (Auto) 5 0-12 % Eosinophils (%) (Auto) 0 0-10 % Basophils (%) (Auto) 0 0-10 % Neutrophils # (Auto) 8.5 H 1.8-7.8 10^3/uL Lymphocytes # (Auto) 2.0 1.0-4.0 10^3/uL Monocytes # (Auto) 0.5 0.0-1.0 10^3/uL Eosinophils # (Auto) 0.0 0.0-0.3 10^3/uL Basophils # (Auto) 0.0 0.0-0.1 10^3/uL Immature Granulocyte # (Auto) 0.1 0.0-0.1 10^3/uL Sodium Level 130 L 135-145 MMOL/L Potassium Level 3.7 3.6-5.0 MMOL/L Chloride Level 102 98-107 MMOL/L Carbon Dioxide Level 19 L 21-32 MMOL/L Anion Gap 9 5-14 MMOL/L Blood Urea Nitrogen 8 7-18 MG/DL Creatinine 0.76 0.60-1.30 MG/DL Estimat Glomerular Filtration Rate 93 BUN/Creatinine Ratio 11 Glucose Level 104 70-105 MG/DL Calcium Level 8.8 8.5-10.1 MG/DL Corrected Calcium 8.8 8.5-10.1 MG/DL Magnesium Level 1.9 1.6-2.4 MG/DL Total Bilirubin 0.5 0.1-1.0 MG/DL Aspartate Amino Transf (AST/SGOT) 28 5-34 U/L Alanine Aminotransferase (ALT/SGPT) 21 0-55 U/L Alkaline Phosphatase 91 40-136 U/L Total Protein 6.8 6.4-8.2 GM/DL Albumin 4.0 3.2-4.5 GM/DL Serum Alcohol < 10 <10 MG/DL Urine Color YELLOW Urine Clarity CLEAR Urine pH 7.0 5-9 Urine Specific [place] 1.010 L 1.016-1.022 Urine Protein NEGATIVE NEGATIVE Urine Glucose (UA) NEGATIVE NEGATIVE Urine Ketones NEGATIVE NEGATIVE Urine Nitrite NEGATIVE NEGATIVE Urine Bilirubin NEGATIVE NEGATIVE Urine Urobilinogen 0.2 < = 1.0 MG/DL Urine Leukocyte Esterase TRACE H NEGATIVE Urine RBC (Auto) NEGATIVE NEGATIVE Urine RBC NONE /HPF Urine WBC RARE /HPF Urine Squamous Epithelial Cells RARE /HPF Urine Crystals NONE /LPF Urine Bacteria TRACE /HPF Urine Casts NONE /LPF Urine Mucus NEGATIVE /LPF Urine Culture Indicated NO Urine Opiates Screen NEGATIVE NEGATIVE Urine Oxycodone Screen NEGATIVE NEGATIVE Urine Methadone Screen NEGATIVE NEGATIVE Urine Barbiturates Screen NEGATIVE NEGATIVE Ur Tricyclic Antidepressants Screen NEGATIVE NEGATIVE Urine Phencyclidine Screen NEGATIVE NEGATIVE Urine Amphetamines Screen NEGATIVE NEGATIVE Urine Methamphetamines Screen NEGATIVE NEGATIVE Urine Benzodiazepines Screen NEGATIVE NEGATIVE Urine Cocaine Screen NEGATIVE NEGATIVE Urine Cannabinoids Screen NEGATIVE NEGATIVE My Orders Orders - KEMAL SEN DO Ed Iv/Invasive Line Start (06/11/23 11:35) Monitor-Rhythm Ecg Trace Only (06/11/23 11:35) Alcohol (06/11/23 11:35) Cbc And Automated Diff (06/11/23 11:35) Comprehensive Metabolic Panel (06/11/23 11:35) Drug Screen Stat (Urine) (06/11/23 11:35) Magnesium (06/11/23 11:35) Ua Culture If Indicated (06/11/23 11:35) Ed Iv/Invasive Line Start (06/11/23 12:15) Ns Iv 1000 Ml (Ns Iv 1000 Ml) (06/11/23 12:15) Vital Signs/I&O 06/11/23 11:33 Temp 36.8 Pulse 88 Resp 16 B/P (MAP) 124/76 (92) O2 Delivery Room Air Capillary Refill : Departure Impression Primary Impression: Seizure disorder Disposition: 01 HOME, SELF-CARE Condition: Stable Departure-Patient Inst. Decision time for Depature: 13:40 Referrals: [facility] (PCP/Family) Primary Care Physician Patient Instructions: Seizures Add. Discharge Instructions: TAKE YOUR MEDICATION EVERY DAY PRESCRIBED FOLLOW UP WITH [facility] THIS WEEK FOR FURTHER CARE KEMAL SEN DO Jun 11, 2023 12:00
[2023-06-11 12:05] LABS: CHLORIDE 102 MMOL/L (98-107); POTASSIUM 3.7 MMOL/L (3.6-5.0); SODIUM 130 MMOL/L (135-145)
[2023-06-11 12:06] LABS: CALCIUM 8.8 MG/DL (8.5-10.1)
[2023-06-11 12:07] LABS: GLUCOSE 104 MG/DL (70-105); TOTAL PROTEIN 6.8 GM/DL (6.4-8.2)
[2023-06-11 12:08] LABS: CARBON DIOXIDE 19 MMOL/L (21-32)
[2023-06-11 12:09] LABS: BILIRUBIN,TOTAL 0.5 MG/DL (0.1-1.0)
[2023-06-11 12:11] LABS: ALKALINE PHOSPHATASE 91 U/L (40-136); CREATININE SERUM 0.76 MG/DL (0.60-1.30); GFR ESTIMATED 93
[2023-06-11 12:12] LABS: BUN/CREATININE RATIO 11
[2023-06-11 12:14] LABS: ALANINE AMINOTRANSFERASE 21 U/L (0-55); MAGNESIUM 1.9 MG/DL (1.6-2.4)
[2023-06-11] MEDS ORDERED: NS IV 1000 ML 1,000 ML IV SCH (12:15)
[2023-06-11 13:19] LABS: AMPHETAMINE SCREEN, URINE NEGATIVE (NEGATIVE); BARBITURATE SCREEN URINE NEGATIVE (NEGATIVE); CANNABINOID SCREEN, URINE NEGATIVE (NEGATIVE); COCAINE SCREEN URINE NEGATIVE (NEGATIVE); METHADONE STAT NEGATIVE (NEGATIVE); OPIATE SCREEN URINE NEGATIVE (NEGATIVE); OXYCODONE STAT NEGATIVE (NEGATIVE); TRICYCLIC ANTIDEPRESSANTS SCRE NEGATIVE (NEGATIVE)
[2023-06-11 13:20] LABS: BILIRUBIN,URINE NEGATIVE (NEGATIVE); CLARITY,URINE CLEAR; COLOR,URINE YELLOW; GLUCOSE, URINE (UA) NEGATIVE (NEGATIVE); KETONES,URINE NEGATIVE (NEGATIVE); LEUKOCYTE ESTERASE ,URINE TRACE (NEGATIVE); NITRITE,URINE NEGATIVE (NEGATIVE); PROTEIN,URINE NEGATIVE (NEGATIVE)
[2023-06-11 13:21] LABS: BACTERIA,URINE TRACE /HPF; SQUAMOUS EPITHELIAL CELL,UR RARE /HPF; WBC,URINE RARE /HPF
[2023-06-11 14:00] VITALS: BP 112/68
== END 2023-06-11 14:00 | disposition home or self-care (01) ==
LOC: EDUNIT# 11:31 → ER 11:33
DX: G40.909 Epilepsy, unspecified, not intractable, without status epilepticus (principal)
CPT/HCPCS: 36415; 80053; 80306; 80320; 81000; 83735; 85025; 93041; 96360